=== PATIENT | male | born 1955 | race Caucasian/White ===

== ENCOUNTER 2020-10-13 11:29 | Outpatient (CLI) | payer OTHER ==
[2020-10-13 12:13] VITALS: BP 139/89
--- NOTE | 2020-10-13 12:13 | SLEEP CARE CONSULTATION ---
Information from patient questionnaire entered by Sharifa Luque. I have reviewed and concur with the information entered by Sharifa Luque. This document represents the service I personally performed and the decisions made by me, Vanesa Alcala ARNP. History of Present Illness Service Date and Time: 10/13/2020 1129 Reason for Visit: New patient Chief Complaint: reports: Insomnia, Unrefreshed sleep, Snoring, Frequent awakenings at night Date of Onset: long time, but surge about 2 weeks ago Usual bedtime: 10 pm Time it takes to fall asleep: up to 30 minutes Snores at night: Yes Observed to quit breathing while asleep: Yes Sleeps alone due to snoring: Yes Number of times waking at night: 5 Reasons for waking at night: reports: Gasping for air Toss, Turn, or Twitch while sleeping: Yes Recalls having dreams: No Usually gets out of bed at: 6 am Feels refreshed in the morning: Yes (sometimes) Morning headache: No Sleepy or fatigued during the day: Yes Ever fallen asleep while driving: No Takes day naps: Yes Dreams during day naps: No Prior sleep studies: No Additional HPI information: I had the pleasure of seeing SUSANA SIMENTAL today regarding the possibility of him having a sleep disorder. His current complaints are frequent night awakenings, insomnia and snoring. He hurt his back and he had difficulty sleeping on his sides recently. He states that for a few nights after he experienced some shortness of breath/gasping for air on his side. He was not sure if it was related to anxiety but he decided to see his PCP. His PCP did evaluate him for heart causes and then he was referred here for evaluation of possible sleep apnea. He has trouble with waking up after going to sleep and if he does not go to sleep by midnight he has difficulty going to sleep. His sleeps in other room due to loud and frequent snoring. She has not seen if he has pauses in breathing. He occasionally has woke up gasping for air. He states sometimes it is just in his head and he feels anxious about getting a breath in. He did try an OTC oral device that did seem to help him feel better in the morning but it made his jaw sore and he stopped using it. He has a brother who has sleep apnea and tried using a machine but did not tolerate it well, he stopped using it. 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 Patient is and lives in [place]. Have you smoked in the past 12 months: No Alcohol use: No Caffeine use: Yes Caffeine amount and frequency: 12 oz drink once a week Family History Family history of sleep disordered breathing: Yes Family Hx Sleep Apnea: Father: Snoring, Sibling: Snoring, Sleep apnea - Untreated Allergies and Home Medications Drug allergies reviewed: Yes (NKDA) Home medication list reviewed: Yes Allergy and home medication list: Flonase, prn Review of Systems Weight gain over past 5 years: 5 Weight loss over past 5 years: 5 Cardiovascular: denies: high blood pressure Respiratory: reports: shortness of breath Gastrointestinal: reports: heartburn Neurological: denies: headaches Psychiatric: denies: anxiety, depression Ear/Nose/Throat: reports: wisdom teeth removed. denies: tonsillectomy Physical Exam Blood Pressure: 139/89 Cuff size: wrist Heart Rate: 74 O2 Saturation: 96 Height: 6 ft Weight: 190 lb Body Mass Index: 25.7 BMI Classification: Overweight Neck circumference: 15 (inches) Nostrils: patent to airflow Mouth and throat: narrow oropharynx Soft palate: long Hard palate: normal Uvula: normal Uvula visualization: 100% Mallampati Class I Tongue: enlarged in size with teeth rudd on lateral edges Tonsils: small Chin and jaw: normal size and position Neck: normal w/o lymphadenopathy or thyromegaly Heart: regular rate and rhythm Lungs: clear bilaterally Impression and Plan 1. Suspected Obstructive Sleep Apnea-Hypopnea Syndrome, as suggested by a history of loud and irregular snoring, gasping or choking in sleep, frequent awakening during the night, and unrefreshed sleep. Narrow oropharynx and obesity are common predisposing factors for obstructive sleep apnea-hypopnea syndrome. I recommend proceeding to polysomnography to confirm the diagnosis and to assess severity. If the patient has significant sleep disordered breathing, a manual CPAP titration study will also be performed to find the optimal treatment pressure. I informed the patient of what the sleep studies involve and after some discussion, obtained agreement to proceed. The pathophysiology of obstructive sleep apnea-hypopnea syndrome was discussed with the patient and health risks of cardiovascular and cerebrovascular disease if not treated. Risks of drowsy driving discussed in detail and patient advised to avoid long distance driving and to harness puller at the first sign of drowsiness. Patient agreed to plan. * Schedule polysomnography +- manual CPAP titration study and return in 1-2 weeks after the study to discuss result and initiate therapy. * Avoid long distance driving or driving when feeling sleepy. * Avoid alcohol, sedative and muscle relaxant around bedtime. * Attempt to lose weight. * Review instructions provided by trained office staff on how to prepare for the sleep study. * Return for follow-up after sleep study completed. Counseling Topics: Weight loss health impact Visit Type: In Office Time Spent with Patient (minutes): 30 Provider Statement: I spent 100% of the Face to Face Visit with the patient with greater than 50% spent counseling the patient and coordination of care.
== END 2020-10-13 11:30 | disposition home or self-care (01) ==
LOC: SC 11:29
PROVIDERS: ATTEND Nurse Practitioner Family
DX: G47.8 Other sleep disorders (principal); R06.83 Snoring; E66.3 Overweight; Z68.25 Body mass index [BMI] 25.0-25.9, adult
CPT/HCPCS: 99203; 99212

== ENCOUNTER 2020-10-15 14:21 | Outpatient (CLI) | payer OTHER | END 2020-10-15 14:22 | disposition home or self-care (01) | LOC: SC 14:21 | PROVIDERS: ATTEND Nurse Practitioner Family | DX: G47.33 Obstructive sleep apnea (adult) (pediatric) (principal); R09.02 Hypoxemia; E66.3 Overweight; Z68.25 Body mass index [BMI] 25.0-25.9, adult | CPT/HCPCS: 95806 ==

== ENCOUNTER 2020-10-20 11:44 | Outpatient (CLI) | payer OTHER ==
--- NOTE | 2020-10-20 12:30 | SLEEP CARE CONSULTATION ---
Information from patient questionnaire entered by Sharifa Luque. I have reviewed and concur with the information entered by Sharifa Luque. This document represents the service I personally performed and the decisions made by , Vanesa Alcala ARNP. History of Present Illness Service Date and Time: 10/20/2020 1144 Initial [place] Sleepiness Scale score: 11 (2020) Current [place] Sleepiness Scale score: 12 Additional HPI information: SUSANA SIMENTAL returns for follow up and results of the recently performed home sleep study. I explained the pathophysiology behind obstructive sleep apnea. We then spent quite a bit of time discussing different treatment options. For mild obstructive sleep apnea, surgery and oral appliance are alternatives to nasal CPAP therapy but in moderate or severe cases, nasal CPAP is the most effective and reliable treatment. Because apnea is primarily in supine position, then positional management therapy could be effective. Methods discussed such as positioning with pillows, using a T-shirt with tennis balls in the back, and shown commercial products that have a pillow format on back to prevent supine sleep. I reviewed the impact of weight changes on sleep apnea and strongly recommended losing weight. After some discussion, the patient opted to go with the nasal CPAP therapy. Nasal autoCPAP set at 4-15 cmH20 will be ordered with rationale explained. A manual titration study will be ordered if unable to find optimal pressure with office adjustments. I explained how CPAP machine works with sample devices RespirRedbeacons Dreamstation and Traansmission [id number] and what to expect when using the machine. Using CPAP every night in order to get used to it was emphasized. Patient advised to put CPAP mask on before getting into bed so as not to fall asleep without CPAP. To assist acclimation to CPAP use, it could also be used for a short time during day while reading or watching TV. The patient was instructed to call the CPAP supplier to discuss any mechanical problem that may occur. If the mask given is uncomfortable or is difficult to keep on through the night even with adjustment, contact the CPAP supplier as many will replace with another mask style if notified before 30 days. If snoring or perceives is not getting enough air or too much air from the machine, notify this office. AAS patient education PAP tips reviewed and given to patient. Patient was cautioned about risks of drowsy driving until sleepiness symptoms resolve. Sleep Study - Results Type of Sleep Study: Home sleep study Prior sleep studies: No Polysomnography/Home Sleep Study results: Physician Impression: The quality of the study is good. The length of the study is adequate (> 240 minutes). Please also see the tabulated and graphic data. 1. Obstructive Sleep Apnea-Hypopnea (ICD-10 G47.33), severe, with an AHI of 46.0 /hr and manjinder SaO2 of 81%. During the study, the patient had 371 apneas (371 obstructive, 0 central, 0 mixed) and 50 hypopneas. The longest episode lasted 102.5 seconds. The respiratory events occurred more frequently during supine sleep (supine AHI was 72.3 and non-supine, 37.82). 2. Hypoxemia (ICD-10 R09.02), mild, with the lowest oxygen saturation of 81 % and 74.1 minutes with SaO2 under 90%. Baseline oxygen saturation was normal (Average oxygen saturation was 92%). Allergies and Home Medications Home medication list reviewed: Yes (no new meds) Review of Systems Review of systems same as previous: Yes (no changes) Physical Exam Heart Rate: 62 O2 Saturation: 95 Height: 6 ft Weight: 192 lb Body Mass Index: 26.0 BMI Classification: Overweight Impression and Plan 1. Obstructive Sleep Apnea-Hypopnea Syndrome, severe, with lowest oxygen saturation of 81%. Obviously this is the cause of the patients symptoms of unrefreshed sleep, and excessive daytime sleepiness. Positive pressure therapy could benefit his overall health and reduce risks for cardiovascular or cerebrovascular adverse events. As mentioned above, the patient will be started on nasal autoCPAP therapy with pressure set at 4-15 cmH2O. A manual titration study will be completed if unable to find optimal treatment pressure with office adjustments. Compliance guidelines also reviewed. A copy of compliance guidelines will be given for reference at check out. Because the apnea is more severe supine, I instructed to avoid sleeping supine using pillow positioning until able to start CPAP use. 2. Hypoxemia, mild, with the lowest oxygen saturation of 81 % and 74.1 minutes with SaO2 under 90%. His baseline oxygen saturation was normal with an average oxygen saturation at 92%. * Nasal auto CPAP therapy, pressure at 4-15 cm H2O. * Attempt to lose weight. * Avoid alcohol consumption near bedtime. * Avoid supine sleep until using CPAP. * The patient is again cautioned about driving until sleepiness completely resolves. * Return one month after CPAP obtained. I will assess response to therapy and compliance at that time. Counseling Topics: Weight loss health impact Visit Type: In Office Time Spent with Patient (minutes): 22 Provider Statement: I spent 100% of the Face to Face Visit with the patient with greater than 50% spent counseling the patient and coordination of care.
== END 2020-10-20 11:45 | disposition home or self-care (01) ==
LOC: SC 11:44
PROVIDERS: ATTEND Nurse Practitioner Family
DX: G47.33 Obstructive sleep apnea (adult) (pediatric) (principal); R09.02 Hypoxemia; E66.3 Overweight; Z68.26 Body mass index [BMI] 26.0-26.9, adult
CPT/HCPCS: 99212; 99213

== ENCOUNTER 2020-12-14 11:28 | Outpatient (CLI) | payer OTHER ==
--- NOTE | 2020-12-14 12:02 | SLEEP CARE CONSULTATION ---
Information from patient questionnaire entered by Sharifa Luque. I have reviewed and concur with the information entered by Sharifa Luque. This document represents the service I personally performed and the decisions made by , Vanesa Alcala ARNP. History of Present Illness Service Date and Time: 12/14/2020 1128 Previous diagnosis: Severe, Obstructive Sleep Apnea-Hypopnea Syndrome AHI: 46.0 (in 2020) Reason for follow up: first compliance Equipment type: CPAP Equipment obtained from: [employer] (has gotten more supplies) Mask style: Nasal Backup mask available: Yes (other mask) Last cushion change: 1 month Prior sleep studies: Yes Year and Where: 2020 - Merged with [facility] Type of Sleep Study: Home sleep study HPI additional information: SUSANA SIMENTAL was diagnosed to have severe, AHI 46.0, obstructive sleep apnea- hypopnea syndrome and returned today for CPAP therapy first compliance follow- up. CPAP Compliance Data - Data Reviewed with Patient Average duration of nightly device use: 5 hr 20 min Compliance rate %: 100 Current pressure setting (cmH2O): 4-6 (avg 5.4, max 6.0) Humidity settin Average residual AHI: 14.2 Central apnea: 12.1 Obstructive apnea: 0.5 Subjective Patient concerns: denies: aerophagia, mask discomfort, air blowing in eyes, mask leak noise, condensation in mask/hose, nasal congestion, dry mouth, nose, thro at, epistaxis, other Observed to snore while using device: No Current pressure setting perceived as: comfortable On therapy, patient: reports: sleeping better, awakening more refreshed, being more awake and alert during the day, more rested overall. denies: drowsiness while driving Initial [place] Sleepiness Scale score: 11 (2020) Current [place] Sleepiness Scale score: 17 Allergies and Home Medications Home medication list reviewed: Yes (no changes) Review of Systems Review of systems same as previous: Yes (no changes) Physical Exam Heart Rate: 65 O2 Saturation: 94 Height: 6 ft Weight: 181 lb 9.6 oz Body Mass Index: 24.6 BMI Classification: Healthy weight Impression and Plan 1. Obstructive Sleep Apnea-Hypopnea Syndrome, severe, with excellent treatment compliance and fair apnea control. On CPAP therapy, the patient has better sleep quality and is more rested overall. The patients pressure will be changed to autoCPAP 4-7 cmH20 for elevation of residual AHI. Patient advised to contact me if pressure change is uncomfortable so that it can be adjusted. Goals for apnea control discussed. He is already scheduled for a titration study. He continues to have central apneas at 12.1 on average and obstructive apneas at 0.5 on average. I will just increase his pressure to 4 to 7 cmH2O and then we will readjust after his titration study is completed. Patient voiced understanding. Patient's apnea severity and rationale for treatment to reduce apnea, improve sleep quality and reduce cardiovascular and cerebrovascular events was reviewed. * Change autoCPAP pressure to 4-7 cmH2O * Titration study as previously ordered * Notify me if snoring with mask or feeling that the pressure is too much or too little * Maintain a healthy weight * Call this office if any problems using CPAP * Return for follow up after titration study, or sooner if concerns arise Counseling Topics: Spare mask, Weight control Visit Type: In Office Time Spent with Patient (minutes): 22 Provider Statement: I spent 100% of the Face to Face Visit with the patient with greater than 50% spent counseling the patient and coordination of care.
== END 2020-12-14 11:29 | disposition home or self-care (01) ==
LOC: SC 11:28
PROVIDERS: ATTEND Nurse Practitioner Family
DX: G47.33 Obstructive sleep apnea (adult) (pediatric) (principal)
CPT/HCPCS: 99212; 99213

== ENCOUNTER 2023-04-25 20:49 | Outpatient (CLI) | payer OTHER ==
--- NOTE | 2023-04-26 12:57 | Ultrasound Report ---
PROCEDURE: Retroperitoneal INDICATIONS: UROTHELIAL CA OF BLADDER TECHNIQUE: Real-time scanning was performed of the retroperitoneal organs, with image documentation. COMPARISON: None. FINDINGS: Kidneys: Kidneys are normal in size. Right kidney measures 12.8 cm long; left kidney measures 10.9 cm long. Right renal cortical thickness is 1.2 cm; left renal cortical thickness is 1.3 cm. No ted d masses or nephrolithiasis. Mild right-sided hydronephrosis. No left-sided hydronephrosis. Bladder: Pre-void bladder volume is 298 mL. Post-void residual is 22 mL. Pre-void images demonstra te no intraluminal masses or stones. Sprague catheter is in appropriate position. On pre-void images, l eft ureteral jet is noted with color Doppler interrogation. (Of note, ureteral jets may not be detec table in up to 25% of cases due to insufficient differences in specific gravity between ureteral and bladder urine). Miscellaneous: No free abdominal fluid. Prostate measures 3.1 x 3.8 x 3.7 cm (volume of 24 mL) IMPRESSION: 1. Mild right-sided hydronephrosis. No left-sided hydronephrosis. 2. No sonographic evidence of bladder mass or stone. 3. Sprague is in appropriate position. Reviewed by: Esperanza Jasso MD on 04/26/2023 12:56 PM PST Approved by: Esperanza Jasso MD on 04/26/2023 12:56 PM PST Station ID: [id number]
== END 2023-04-25 20:50 | disposition home or self-care (01) ==
LOC: DI 20:49
PROVIDERS: ATTEND Urology
DX: C67.9 Malignant neoplasm of bladder, unspecified (principal); N13.30 Unspecified hydronephrosis; Z96.0 Presence of urogenital implants

== ENCOUNTER 2023-05-05 08:52 | Emergency (ER) | payer OTHER ==
--- NOTE | 2023-05-05 09:35 | ED Physician Documentation ---
PD HPI MALE - Stated complaint Stated Complaint: CATH HELP - Chief complaint Chief Complaint: General - History obtained from History obtained from: Patient - History of Present Illness Timing - onset: How many days ago (4) Timing - duration: Days (4) Timing - details: Intermittant (he had had bladder cancer removed and mason in place short time then out, and was having retention, so taught intermittent self-caths. he did okay for couple of days, but then with feeling of resistance going in and had some blood from urethra briefly once. Unable to pass catheter today. wants help.) Associated symptoms: Unable to urinate, Mason problem (difficultly passing self cath catheter and today unable to get it at all.) Review of Systems Constitutional: denies: Fever, Chills GI: denies: Abdominal Pain, Vomiting Skin: denies: Rash, Lesions PD PAST MEDICAL HISTORY - Past Medical History Past Medical History: Yes Cardiovascular: Hypertension Respiratory: None Neuro: None Endocrine/Autoimmune: None GI: None : Other HEENT: None Psych: None Musculoskeletal: None Derm: None Other Past Medical History: bladder cancer - Past Surgical History Past Surgical History: Yes - Allergies Allergies/Adverse Reactions: Allergies Allergy/AdvReac Type Severity Reaction Status Date / Time No Known Drug Allergies Allergy Verified 05/05/23 09:17 - Social History Does the pt smoke?: No Smoking Status: Never smoker Does the pt drink ETOH?: No Does the pt have substance abuse?: No - Immunizations Immunizations are current?: Yes - POLST Patient has POLST: No PD ED PE NORMAL - Vitals Vital signs reviewed: Yes - General General: Alert and oriented X 3, No acute distress, Well developed/nourished - Abdomen Abdomen: Normal bowel sounds, Soft, No organomegaly, Other (minimally tender suprapubic and some distended bladder area. Last self cath was about 6-8 hurs ago.) Results - Vitals Vitals: Vital Signs - 24 hr 05/05/23 05/05/23 09:12 11:12 Temperature 35.9 C L 35.9 C L Heart Rate 65 72 Respiratory 16 16 Rate Blood Pressure 176/111 H 136/72 H O2 Saturation 95 100 PD Medical Decision Making - ED course Complexity details: considered differential (He has been doing intermittent self caths since this past Sunday. He states he had some difficulty with it intermittently and had some blood in the urine after a difficult insertion on Sunday which was 3 days ago. He was having inability to pass the catheter this morning.), d/w patient ED course: At this point given his history of enlarged prostate and with difficulty on the intermittent caths, shared decision with the patient was to just place an indwelling Mason to a leg bag until he can follow-up with his urologist this coming week. The patient was in agreement with that. Departure - Departure Disposition: 01 Home, Self Care Clinical Impression: BPH (benign prostatic hyperplasia), Acute on chronic urinary retention Condition: Stable Record reviewed to determine appropriate education?: Yes Follow-Up: Chandrika Braga MD [Primary Care Provider] - Comments: Since you are having difficulty with the self catheterizations, at this point it is reasonable to just have the catheter in place over the next few days until you can follow-up with your urologist this coming week. Forms: PCP List Discharge Date/Time: 05/05/23 11:12
[2023-05-05 11:20] VITALS: BP 136/72; O2SAT 100
== END 2023-05-05 11:12 | disposition home or self-care (01) ==
LOC: ED 08:52
DX: N40.1 Benign prostatic hyperplasia with lower urinary tract symptoms (principal); R33.8 Other retention of urine; I10 Essential (primary) hypertension; Z85.51 Personal history of malignant neoplasm of bladder
CPT/HCPCS: 51702; 99283

== ENCOUNTER 2023-05-22 19:52 | Outpatient (CLI) | payer OTHER ==
--- NOTE | 2023-05-23 16:24 | Ultrasound Report ---
PROCEDURE: Retroperitoneal INDICATIONS: UROTHELIAL CA TECHNIQUE: Real-time scanning was performed of the retroperitoneal organs, with image documentation. COMPARISON: Retroperitoneal ultrasound 04/26/2023 FINDINGS: Kidneys: Right kidney measures 11.5 cm long; left kidney measures 12.0 cm long. Right renal cortica l thickness is 1.0 cm; left renal cortical thickness is 1.5 cm. There is persistent appearance of rig ht hydronephrosis although slightly decreased compared to prior exam. Pelvocaliectasis on the left is present relatively unchanged. Bladder: Pre-void bladder volume is 871 mL. Post-void residual is 12 mL. Pre-void images demonstra te no intraluminal masses or stones. On pre-void images, neither ureteral jets are noted with color Doppler interrogation. (Of note, ureteral jets may not be detectable in up to 25% of cases due to in sufficient differences in specific gravity between ureteral and bladder urine). Miscellaneous: No free abdominal fluid. IMPRESSION: Persistent appearance of hydronephrosis/pelvocaliectasis, similar versus minimally less prominent. Reviewed by: Tory Mays MD on 05/23/2023 4:23 PM PST Approved by: Tory Mays MD on 05/23/2023 4:23 PM PST Station ID: [id number]
== END 2023-05-22 19:53 | disposition home or self-care (01) ==
LOC: DI 19:52
PROVIDERS: ATTEND Physician Assistant Medical
DX: C67.9 Malignant neoplasm of bladder, unspecified (principal); N13.30 Unspecified hydronephrosis

== ENCOUNTER 2023-08-04 02:21 | Inpatient (IN) | payer MEDICARE, OTHER ==
--- NOTE | 2023-08-04 03:24 | ED Physician Documentation ---
History of Present Illness - Stated complaint Stated Complaint: SOA/PANIC ATTACK - Chief complaint Chief Complaint: General - History obtained from History obtained from: Patient - Additonal information Additional information: 68yM with pmh urothelial cancer s/p BCG local chemotheray treatment and TURP, recent imaging 3 weeks ago showing lung and liver nodules, p/w insomnia for the past couple weeks along with shortness of breath, increased nonproductive cough and anxiety. patient states he had ground glass opacities on his CT chest 3 weeks ago and O2 sat has been 92-93% in office with Dr. Braga this week. denies fever, rhinorrhea, nasal congestion, sore throat, chest pain, nausea. The main reason he came is insomnia. PD PAST MEDICAL HISTORY - Past Medical History Past Medical History: Yes Cardiovascular: Hypertension Respiratory: None Neuro: None Endocrine/Autoimmune: None GI: None : Other HEENT: None Psych: Panic attacks Musculoskeletal: None Derm: None Other Past Medical History: Bladder ca - Past Surgical History Past Surgical History: Yes Ortho: ACL reconstruction - Present Medications Home Medications: Ambulatory Orders Medication Instructions Recorded Confirmed LORazepam [Ativan] 0.5 mg PO HS PRN 10 Days #10 tablet 08/04/23 Tamsulosin [Flomax] 0.4 mg PO DAILY 08/04/23 08/04/23 - Allergies Allergies/Adverse Reactions: Allergies Allergy/AdvReac Type Severity Reaction Status Date / Time No Known Drug Allergies Allergy Verified 08/04/23 03:02 - Social History Does the pt smoke?: No Smoking Status: Never smoker Does the pt drink ETOH?: No Does the pt have substance abuse?: No - Immunizations Immunizations are current?: Yes - POLST Patient has POLST: No PD ED PE NORMAL - Vitals Vital signs reviewed: Yes - General General: Alert and oriented X 3, No acute distress, Well developed/nourished - HEENT HEENT: Atraumatic, PERRL, EOMI, Moist mucous membranes, Pharynx benign - Neck Neck: Supple, no meningeal sign - Cardiac Cardiac: RRR - Respiratory Respiratory: Other (coarse bilateral breath sounds) - Abdomen Abdomen: Non tender, Non distended - Derm Derm: Normal color, Warm and dry Results - Vitals Vitals: Vital Signs - 24 hr 08/04/23 08/04/23 08/04/23 02:40 02:44 04:04 Temperature 36.6 C Heart Rate 95 69 70 Respiratory 19 20 26 H Rate Blood Pressure 168/101 H 139/97 H 124/86 H O2 Saturation 98 88 L 85 L If not protocol 2 : Oxygen Flow, liters/minute Oxygen O2 Source Nasal cannula - EKG (time done) 0246 EKG releavant findings:: EKG personally interpreted by author of this note. Relevant findings are: Rate: Rate (enter#) (69) Rhythm: NSR [place]: Normal Intervals: Normal MT QRS: Normal Ischemia: Normal ST segments - Labs Labs: Laboratory Tests 08/04/23 08/04/23 08/04/23 03:32 03:32 03:32 WBC 8.4 RBC 4.33 L Hgb 13.7 L Hct 40.1 L MCV 92.6 MCH 31.6 H MCHC 34.2 RDW 12.0 Plt Count 261 MPV 8.6 Neut # (Auto) 6.5 Lymph # (Auto) 0.5 L [place] # (Auto) 1.0 Eos # (Auto) 0.2 Baso # (Auto) 0.1 Absolute Nucleated RBC 0.00 Nucleated RBC % 0.0 D-Dimer 462.4 H VBG pH VBG pCO2 VBG pO2 VBG HCO3 VBG Total CO2 VBG O2 Saturation VBG Base Excess Sodium 136 Potassium 3.8 Chloride 103 Carbon Dioxide 25 Anion Gap 8.0 BUN 12 Creatinine 0.8 Estimated GFR (MDRD) 97 Glucose 117 H Calcium 8.7 Total Bilirubin 0.7 AST 11 ALT 9 L Alkaline Phosphatase 50 B-Natriuretic Peptide Total Protein 7.4 Albumin 3.5 Globulin 3.9 Albumin/Globulin Ratio 0.9 L Lipase 13 08/04/23 08/04/23 03:32 03:32 WBC RBC Hgb Hct MCV MCH MCHC RDW Plt Count MPV Neut # (Auto) Lymph # (Auto) [place] # (Auto) Eos # (Auto) Baso # (Auto) Absolute Nucleated RBC Nucleated RBC % D-Dimer VBG pH 7.469 H VBG pCO2 34.5 L VBG pO2 55.7 H VBG HCO3 24.5 VBG Total CO2 25.5 VBG O2 Saturation 90.0 H VBG Base Excess 1.3 Sodium Potassium Chloride Carbon Dioxide Anion Gap BUN Creatinine Estimated GFR (MDRD) Glucose Calcium Total Bilirubin AST ALT Alkaline Phosphatase B-Natriuretic Peptide 17 Total Protein Albumin Globulin Albumin/Globulin Ratio Lipase PD Medical Decision Making - ED course ED course: 68yM with metastatic bladder cancer p/w insomnia and anxiety for the past couple weeks as well as increased cough and soa. patient states symptoms began after finding out results of his chest CT 3 weeks ago that showed new pulmonary nodules and ground glass opacities in the lungs. Patient refused CXR or ct chest. CBC, abdominal panel, RVP, d-dimer, BNP, vbg ordered. Labs remarkable for d- dimer 462. VBG shows hyperventilatory pattern. cbc, abdominal panel, bnp otherwise normal. Pending RVP. Patient refused CTA chest to r/o PE despite knowing risk of morbidity / mortality. They would like to leave AMA at this time. risks discussed and patient is of sound mind and able to consent to or refuse treatment. advised to return immediately if they change their minds. plan to f/u with oncology. Departure - Departure Disposition: 07 Against Medical Advice Clinical Impression: Shortness of breath, Anxiety, Cough, Hypoxia, Insomnia Condition: Stable Instructions: ED Dyspnea Shortness of Breath Prescriptions: LORazepam [Ativan] 0.5 mg PO HS PRN 10 Days #10 tablet PRN Reason: Insomnia Comments: You were seen in the emergency department for shortness of breath, cough and low oxygen levels. Your labwork is concerning for possible blood clot in the lung (pulmonary embolism). You refused a chest xray or ct scan of the chest which limits our medical evaluation. An AMA form was completed to document your leaving against medical advice. A prescription for ativan, an anti-anxiety medication was sent electronically to [facility] pharmacy. Please follow-up with your primary care provider and oncology and return to the emergency department if you have any new or worsening symptoms or other concerns. Forms: PCP List
[2023-08-04] MEDS: LORazepam 2 MG/ML VIAL IVP STA (03:32)
[2023-08-04 03:41] LABS: BASOPHILS # (AUTO) 0.1 10^3/uL (0.0-0.1); BASOPHILS % (AUTO) 0.7 %; EOSINOPHILS # (AUTO) 0.2 10^3/uL (0.0-0.7); EOSINOPHILS % (AUTO) 2.6 %; HCT - HEMATOCRIT 40.1 % (42.0-52.0); HGB - HEMOGLOBIN 13.7 g/dL (14.0-18.0); LYMPHOCYTES # (AUTO) 0.5 10^3/uL (1.5-3.5); LYMPHOCYTES % (AUTO) 6.3 %; MEAN CORPUSCULAR HEMOGLOBIN 31.6 pg (27.0-31.0); MEAN CORPUSCULAR HGB CONC 34.2 g/dL (32.0-36.0); MEAN CORPUSCULAR VOLUME 92.6 fL (80.0-94.0); MEAN PLATELET VOLUME 8.6 fL (7.4-11.4); MONOCYTES % (AUTO) 12.4 %; NEUTROPHILS # (AUTO) 6.5 10^3/uL (1.5-6.6); NEUTROPHILS % (AUTO) 77.6 %; PLT - PLATELET COUNT 261 10^3/uL (130-450); RED BLOOD COUNT 4.33 10^6/uL (4.70-6.10); WHITE BLOOD COUNT 8.4 x10^3/uL (4.8-10.8)
[2023-08-04 03:53] LABS: VBG HCO3 24.5 mmol/L (23-28); VBG PCO2 34.5 mmHg (41-51); VBG PH 7.469 (7.31-7.41); VBG PO2 55.7 mmHg (25-47); VBG TOTAL CO2 25.5 mmol/L (24-29)
[2023-08-04 03:54] LABS: VBG BASE EXCESS 1.3 mmol/L (-2 - +2)
[2023-08-04 04:04] LABS: ALBUMIN 3.5 g/dL (3.2-5.5); ALBUMIN/GLOBULIN RATIO 0.9 (1.0-2.2); BILIRUBIN,TOTAL 0.7 mg/dL (0.2-1.0); CALCIUM 8.7 mg/dL (8.5-10.3); CREATININE 0.8 mg/dL (0.6-1.3); POTASSIUM 3.8 mmol/L (3.5-4.5); TOTAL PROTEIN 7.4 g/dL (6.4-8.9)
[2023-08-04] MEDS ORDERED: iohexoL-300 100 ML VIAL ONE (05:18)
[2023-08-04 05:20] LABS: B. PARAPERTUSSIS- RESP PCR PAN NOT DETECTED; B. PERTUSSIS- RESP PCR PANEL NOT DETECTED; C. PNEUMONIAE- RESP PCR PANEL NOT DETECTED; CORONAVIRUS 229E-RESP PCR NOT DETECTED; CORONAVIRUS HKU1-RESP PCR NOT DETECTED; CORONAVIRUS NL63-RESP PCR NOT DETECTED; CORONAVIRUS OC43-RESP PCR NOT DETECTED; HUMAN METAPNEUMOVIRUS NOT DETECTED; INFLUENZA A- RESP PCR PANEL NOT DETECTED; INFLUENZA B - RESP PCR PANEL NOT DETECTED; M. PNEUMONIAE- RESP PCR PANEL NOT DETECTED; PARAINFLUENZA VIRUS 1 NOT DETECTED; PARAINFLUENZA VIRUS 2 NOT DETECTED; PARAINFLUENZA VIRUS 3 NOT DETECTED; PARAINFLUENZA VIRUS 4 NOT DETECTED; RHINOVIRUS/ENTEROVIRUS NOT DETECTED; RSV- RESP PCR PANEL NOT DETECTED; SARS-CoV-2 -RESP PCR PANEL NOT DETECTED
[2023-08-04] MEDS: iohexoL-300 100 ML VIAL IVP ONE (06:03)
--- NOTE | 2023-08-04 07:05 | ED Physician Documentation ---
ED Addendum - Addendum Addendum: 08/04/23 07:02 CT chest showed BL lung disease "likely pneumonic in origin". Plan to admit for CAP in the setting of hypoxia. patient satting low 90s on 4L nasal cannula. desaturates to mid80s off of oxygen. rocephin/azithromycin ordered along with lactic acid and blood cultures. no beds available overnight therefore endorsed to incoming daytime ED MD at 7am shift change.
[2023-08-04] MEDS: cefTRIAXone 1 GM in SODIUM CHLORIDE 0.9% MINIBAG 100 ML IV STA (07:23)
[2023-08-04] MEDS: AZITHROMYCIN INJ 500 MG in SODIUM CHLORIDE 0.9% 250 ML IV STA (08:08)
--- NOTE | 2023-08-04 11:07 | CT Report ---
PROCEDURE: Angio Chest INDICATIONS: soa, cough CONTRAST: 100 ML OMNI 300 TECHNIQUE: After the administration of intravenous contrast, 2 mm axial images were acquired from the pulmonary apices to the posterior costophrenic angles during the arterial phase. In addition, 1 mm lung kernel and 5 mm soft tissue kernel reconstructions were performed. 3-dimensional coronal oblique maximum int ensity projection (MIP) reformats, 8 mm axial MIP, and 5 mm coronal and sagittal MPR reformats were t hen performed through the thorax. For radiation dose reduction, the following was used: automated exp osure control, adjustment of mA and/or kV according to patient size. COMPARISON: None. FINDINGS: Image quality: Excellent. Large vessels: No filling defects within the opacified pulmonary arteries, accounting for motion and contrast timing. No evidence of acute aortic syndrome or aortic aneurysm. Lungs and pleura: As a small right-sided pleural effusion and a trace left-sided pleural effusion. Ov erlying dependent enhancing consolidation can be seen, which is attributed to atelectasis. Minimal pa tchy poorly defined nodular opacities can be seen elsewhere within the lungs. No pneumothorax is seen . Mediastinum: Heart size is normal. No pericardial effusion. No large vessel abnormality. No mediastin al adenopathy by size criteria. Chest wall and lower neck: Thyroid is unremarkable. No axillary or supraclavicular adenopathy by size . Bones: No aggressive osseous abnormality. Age-appropriate degenerative changes are seen. There is accentuated thoracic kyphosis. Upper Abdomen: Unremarkable. IMPRESSION: No pulmonary embolus. There is a small right-sided pleural effusion and a trace left-sided pleural effusion, with associate d overlying atelectasis. Minimal scattered foci of poorly defined opacity can be seen throughout the lungs, which are nonspeci fic, yet atypical infection is suspected. Differential diagnosis includes mild pulmonary edema. Note: No significant discrepancy from the preliminary report. Reviewed by: Goldy Snyder MD on 08/04/2023 10:06 AM [facility] Approved by: Goldy Snyder MD on 08/04/2023 10:06 AM [facility] Station ID: [id number]
[2023-08-04] MEDS ORDERED: ONDANSETRON ODT 4 MG TABLET TL PRN (11:14)
[2023-08-04] MEDS: SODIUM CHLORIDE 0.9% 1,000 ML IV SCH (11:33)
[2023-08-04] MEDS ORDERED: ZOLPIDEM 5 MG TABLET PO PRN (13:42)
--- NOTE | 2023-08-04 13:44 | HISTORY & PHYSICAL EXAMINATION ---
Chief Complaint - Chief Complaint Chief Complaint: Anxiety and shortness of breath <Elizabeth Powell - Last Filed: 08/04/23 17:41> History of Present Illness - Admitted From Admitted From:: Emergency Room - History Obtained From History obtained from: Patient and patient's Exam Limitations: none <Elizabeth Powell - Last Filed: 08/04/23 17:41> - History of Present Illness HPI Comment/Other: Yao is a 68 year old male with a history of urothelial cancer s/p BCG local chemotheray treatment and TURP who presents to the ER with anxiety and shortness of breath. He reports he has been feeling progressively weaker and short of breath for the past few weeks. He has dyspnea with exertion and reports significant fatigue when exercising, which is new for him. He also endorses a nonproductive cough. Initial labs in the ER were unremarkable other than an elevated D-dimer at 462.4. CT angio of the chest showed no PE. Small right sided pleural effusion and trace left sided pleural effusion with associated overlying atelectasis. Minimal scattered foci of poorly defined opacity can be seen throughout the lungs. This appears to be nonspecfic, yet atypical infection is suspected. Differential diagnosis includes mild pulmonary edema. EKG was unremarkable. He did have a CT of the chest at the end of Jun that showed ground glass opacities with an O2 sat around 92-93%. Currently, patient appears to be anxious and is worried about his sleep. He has diagnosed obstructive sleep apnea and does sleep with a CPAP with some relief. However, since he started feeling sick a few weeks ago, he has had a hard time sleeping due to fear of going to sleep and never waking up. He admits to being incredibly stressed and is interested in anti-anxiety meds. Due to increased stress, he also reports a decreased appetite but denies any nausea, vomiting, abdominal pain, changes in bowel movements, or weight loss. (Elizabeth Powell) History - Past Medical History Cardiovascular: reports: Hypertension Respiratory: reports: None Neuro: reports: None Endocrine/Autoimmune: reports: None GI: reports: None : reports: Other (mason cather) HEENT: reports: None Psych: reports: Anxiety, Panic attacks Musculoskeletal: reports: None Derm: reports: None MRSA Hx?: No Other Past Medical History: Bladder ca - Past Surgical History Ortho: reports: ACL reconstruction - Family & Social History Family History: Mother: Alive and Well, Father: , Diabetes, Type 2, [place], Sister: Diabetes, Type 2, Brother: Diabetes, Type 2 Living arrangement: At home Living Situation: With spouse/s.o. - Substance History Use: Uses substance without health or social issues: NONE Abuse: Recurrent use of substance despite neg consequences: NONE Dependence: Experiences withdrawal or developed tolerances: NONE - POLST Patient has POLST: No POLST Status: Full Code <Elizabeth Powell - Last Filed: 08/04/23 17:41> Meds/Allgy <Elizabeth Powell - Last Filed: 08/04/23 17:41> <Magalie Hernandez - Last Filed: 08/05/23 12:18> - Home Medications Home Medications: Ambulatory Orders Medication Instructions Recorded Confirmed LORazepam [Ativan] 0.5 mg PO HS PRN 10 Days #10 tablet 08/04/23 Tamsulosin [Flomax] 0.4 mg PO DAILY 08/04/23 08/04/23 - Allergies Allergies/Adverse Reactions: Allergies Allergy/AdvReac Type Severity Reaction Status Date / Time No Known Drug Allergies Allergy Verified 08/04/23 03:02 Review of Systems - Constitutional Constitutional: reports: Fatigue, Poor appetite. denies: Weight loss - Eyes Eyes: denies: Pain, Field loss, Vision loss - Ears, Nose & Throat Ears, Nose & Throat: denies: Ear pain, Hearing loss, Nasal pain, Nasal discharge, Sore throat - Cardiovascular Cariovascular: reports: Palpitations, Exertional dyspnea. denies: Chest pain, Edema, Syncope - Respiratory Respiratory: reports: Cough, Snoring, SOB with exertion. denies: Sputum production, Wheezing - Gastrointestinal Gastrointestinal: reports: Poor appetite. denies: Abdominal pain, Abdominal distention, Constipation, Change in bowel habits, Nausea, Vomiting - Genitourinary Genitourinary: reports: Other (mason catheter for history of bladder cancer). denies: Dysuria, Frequency, Urgency - Musculoskeletal Musculoskeletal: denies: Muscle aches, Limited range of motion, Muscle weakness - Integumentary Integumentary: denies: Rash, Pruritis, Lesions - Neurological Neurological: reports: Numbness (in toes, present for 20 years). denies: General weakness, Focal weakness, Headache, Dizziness, Abnormal gait - Psychiatric Psychiatric: reports: Anxiety - Endocrine Endocrine: denies: Polyuria, Polydypsia, Polyphagia - Hematologic/Lymphatic Hematologic/Lymphatic: denies: Anemia, Bruising <AndreElizabeth - Last Filed: 08/04/23 17:41> Exam - Vital Signs Vital Signs: Vital Signs x48h Temp Pulse Resp BP Pulse Ox O2 Flow Rate 08/05/23 08:19 2 08/05/23 08:05 36.8 C 80 22 149/90 H 92 5 08/05/23 07:31 92 5 Conclusion/Plan - Problem List (1) Pneumonia Conclusion/Plan: Patient has had a non productive cough for weeks with progressive shortness of breath exacerbated by exertion. CT angio was negative PE but did show small right sided pleural effusion and trace left sided pleural effusion with associated overlying atelectasis. Minimal scattered foci of poorly defined opacity can be seen throughout the lungs. This appears to be nonspecfic, yet atypical infection is suspected. This is consistent with his last CT of the chest at the end of Jun, that showed ground glass opacities with an O2 sat around 92-93%. He was started on IV Rocephin + Azithromycin in the ER and will continue for 7 days, finishing on 08/10. - IV Rocephin and Azithromycin day 06/24 - Supplemental oxygen is needed (2) Hypoxia Conclusion/Plan: In the ER, patient was started on supplemental oxygen after satting at 92-93%. Currently, he is on 3L and oxygen saturation is within normal limits. This is likely due to his pneumonia. He was started on IV antibiotics and will complete them on 08/10. - Supplemental oxygen as needed (3) Shortness of breath Conclusion/Plan: Patient is short of breath and complains of dyspnea with exertion. This is likely due to his pneumonia and bronchitis. He will continue on antibiotics and use supplemental oxygen as needed. - Supplemental O2 as needed (4) Anxiety Conclusion/Plan: Patient is incredibly anxious. He expressed fear of going to sleep and never waking up again due to his obstructive sleep apnea. This has caused insomnia for the past few weeks. We will provide prn Ativan for anxiety. - PRN ativan (5) Obstructive sleep apnea Conclusion/Plan: Patient has seen a sleep specialist in the past but is having difficulty following up. He is compliant with his CPAP but would like further evaluation due to a recent recall in his CPAP. - Will have RT evaluate tomorrow - Continue using CPAP at night - Lab Results Fish Bones: 08/04/23 03:32 08/04/23 03:32 <Elizabeth Powell - Last Filed: 08/04/23 17:41> - Lab Results Fish Bones: 08/05/23 04:23 08/05/23 04:23 <Magalie Hernandez - Last Filed: 08/05/23 12:18> Core Measures - Anticipated LOS I expect patient to be DC'd or transferred within 96 hours.: Yes - DVT/VTE - Prophylaxis VTE/DVT Prophylaxis med ordered at admit?: Yes <Elizabeth Powell - Last Filed: 08/04/23 17:41>
--- NOTE | 2023-08-04 14:41 | PHARMACY PROGRESS NOTE ---
- Best Possible Medication History Admit Date and Time: 08/04/23 1114 Processed by: Nursing Medications reviewed in ED?: Yes As the person ultimately responsible for medication therapy, providers are able to order a medication from an existing home medication list in [facility] via the "Reconcile Routine" prior to Confirmation of that medication by litigation support analyst. Such practice is discouraged except when the physician, in their clinical judgment, deems that a medical need exists for a medication without regard to previous use.
[2023-08-04] MEDS: SODIUM CHLORIDE FLUSH 0.9% 10 ML SYRINGE IVP SCH (14:58)
[2023-08-04] MEDS: LORazepam 2 MG/ML VIAL IVP PRN (18:12)
[2023-08-04] MEDS: TAMSULOSIN 0.4 MG CAPSULE PO SCH (20:49)
[2023-08-05 05:04] LABS: BASOPHILS # (AUTO) 0.1 10^3/uL (0.0-0.1); BASOPHILS % (AUTO) 0.7 %; EOSINOPHILS # (AUTO) 0.2 10^3/uL (0.0-0.7); EOSINOPHILS % (AUTO) 2.7 %; HCT - HEMATOCRIT 38.2 % (42.0-52.0); HGB - HEMOGLOBIN 12.6 g/dL (14.0-18.0); LYMPHOCYTES # (AUTO) 0.5 10^3/uL (1.5-3.5); LYMPHOCYTES % (AUTO) 5.5 %; MEAN CORPUSCULAR HEMOGLOBIN 31.3 pg (27.0-31.0); MEAN PLATELET VOLUME 8.8 fL (7.4-11.4); MONOCYTES % (AUTO) 12.3 %; NEUTROPHILS # (AUTO) 6.6 10^3/uL (1.5-6.6); NEUTROPHILS % (AUTO) 78.6 %; PLT - PLATELET COUNT 255 10^3/uL (130-450); RED BLOOD COUNT 4.02 10^6/uL (4.70-6.10); RED CELL DISTRIBUTION WIDTH 12.2 % (12.0-15.0); WHITE BLOOD COUNT 8.4 x10^3/uL (4.8-10.8)
[2023-08-05 05:23] LABS: CALCIUM 8.2 mg/dL (8.5-10.3); CREATININE 0.9 mg/dL (0.6-1.3); POTASSIUM 4.1 mmol/L (3.5-4.5)
--- NOTE | 2023-08-05 07:20 | PROVIDER PROGRESS NOTE ---
Subjective - Prog Note Date Prog Note Date: 08/05/23 Prog Note Time: 07:20 - Subjective Pt reports feeling: Improved Subjective: Yao is a 68 year old male with a history of urothelial cancer s/p BCG local chemotheray treatment and TURP who presents to the ER with anxiety and shortness of breath. He reports he has been feeling progressively weaker and short of breath for the past few weeks. He has dyspnea with exertion and reports significant fatigue when exercising, which is new for him. He also endorses a nonproductive cough. Initial labs in the ER were unremarkable other than an elevated D-dimer at 462.4. CT angio of the chest showed no PE. Small right sided pleural effusion and trace left sided pleural effusion with associated overlying atelectasis. Minimal scattered foci of poorly defined opacity can be seen throughout the lungs. This appears to be nonspecfic, yet atypical infection is suspected. Differential diagnosis includes mild pulmonary edema. EKG was unremarkable. He did have a CT of the chest at the end of Jun that showed ground glass opacities with an O2 sat around 92-93%. Patient is extremely anxious and is worried about his sleep. He has diagnosed obstructive sleep apnea and does sleep with a CPAP with some relief. However, since he started feeling sick a few weeks ago, he has had a hard time sleeping due to fear of going to sleep and never waking up. He admits to being incredibly stressed and is interested in anti-anxiety meds. Due to increased stress, he also reports a decreased appetite but denies any nausea, vomiting, abdominal pain, changes in bowel movements, or weight loss. Today, patient reports feeling better. His cough has improved although he is now coughing up yellow tinted phlegm. His oxygen was increased to 5L and he notes being short of breath when walking to the restroom. He believes the ativan helps with his anxiety and would like to continue on it. Objective - Vital Signs/Intake & Output Vital Signs: Vital Signs x48h Temp Pulse Resp BP Pulse Ox O2 Flow Rate 08/05/23 00:08 36.6 C 72 18 136/81 H 94 6 Intake & Output: Intake & Output 08/02/23 08/03/23 08/04/23 08/05/23 23:59 23:59 23:59 23:59 Intake Total 2100 800 Output Total 525 900 Balance 1575 -100 - Objective General Appearance: positive: No acute distress, Alert, Anxious ENT: positive: No signs of dehydration Neck: positive: No JVD, Trachea midline Respiratory: positive: Rales, Other (SOB with exertion) Cardiovascular: positive: Regular rate & rhythm, No murmur, No gallop Abdomen: positive: Non-tender, Nml bowel sounds, No distention Skin: positive: Color nml, No rash, Warm, Dry Extremities: positive: Non-tender, Full ROM, Nml appearance Neurologic/Psychiatric: positive: Oriented x3 - Lab Results Fish Bones: 08/05/23 04:23 08/05/23 04:23 Other Labs: Lab Results x24hrs 08/05/23 08/05/23 08/04/23 Range/Units 04:23 04:23 07:10 WBC 8.4 (4.8-10.8) x10^3/uL RBC 4.02 L (4.70-6.10) 10^6/uL Hgb 12.6 L (14.0-18.0) g/dL Hct 38.2 L (42.0-52.0) % MCV 95.0 H (80.0-94.0) fL MCH 31.3 H (27.0-31.0) pg MCHC 33.0 (32.0-36.0) g/dL RDW 12.2 (12.0-15.0) % Plt Count 255 (130-450) 10^3/uL MPV 8.8 (7.4-11.4) fL Neut # (Auto) 6.6 (1.5-6.6) 10^3/uL Lymph # (Auto) 0.5 L (1.5-3.5) 10^3/uL [place] # (Auto) 1.0 (0.0-1.0) 10^3/uL Eos # (Auto) 0.2 (0.0-0.7) 10^3/uL Baso # (Auto) 0.1 (0.0-0.1) 10^3/uL Absolute Nucleated RBC 0.00 x10^3/uL Nucleated RBC % 0.0 /100WBC Sodium 135 (135-145) mmol/L Potassium 4.1 (3.5-4.5) mmol/L Chloride 104 (101-111) mmol/L Carbon Dioxide 27 (21-32) mmol/L Anion Gap 4.0 L (6-13) BUN 11 (6-20) mg/dL Creatinine 0.9 (0.6-1.3) mg/dL Estimated GFR (MDRD) 84 L (>89) Glucose 106 H (74-104) mg/dL Lactic Acid 1.2 (0.5-2.2) mmol/L Calcium 8.2 L (8.5-10.3) mg/dL Assessment/Plan - Problem List (1) Pneumonia Impression: Patient has had a non productive cough for weeks with progressive shortness of breath exacerbated by exertion. CT angio was negative PE but did show small right sided pleural effusion and trace left sided pleural effusion with associated overlying atelectasis. Minimal scattered foci of poorly defined opacity can be seen throughout the lungs. This appears to be nonspecfic, yet atypical infection is suspected. This is consistent with his last CT of the chest at the end of Jun, that showed ground glass opacities with an O2 sat around 92-93%. He was started on IV Rocephin + Azithromycin in the ER and will continue for 5 days, finishing on 08/08. Currently, he has no infectious symptoms and WBC is at 8.8. - IV Rocephin and Azithromycin day 07/23 - Supplemental oxygen is needed - prn Mucinex (2) Hypoxia Conclusion/Plan: In the ER, patient was started on supplemental oxygen after satting at 92-93%. Currently, he is on 5L and oxygen saturation is within normal limits. This is likely due to his pneumonia. He was started on IV antibiotics and will complete them on 08/08. We will add albuterol neb as needed to help with his breathing. - Supplemental oxygen as needed - albuterol neb as needed (3) Shortness of breath Conclusion/Plan: Patient is short of breath and complains of dyspnea with exertion. This is likely due to his pneumonia and bronchitis. He will continue on antibiotics and use supplemental oxygen as needed. - Supplemental O2 as needed (4) Anxiety Conclusion/Plan: Patient is incredibly anxious. He expressed fear of going to sleep and never waking up again due to his obstructive sleep apnea. This has caused insomnia for the past few weeks. We will provide prn Ativan for anxiety. - PRN ativan (5) Obstructive sleep apnea Conclusion/Plan: Patient has seen a sleep specialist in the past but is having difficulty following up. He is compliant with his CPAP and his O2 sat was 95% throughout the night. - Continue using CPAP at night
[2023-08-05] MEDS: ENOXAPARIN 40 MG/0.4 ML SYRINGE SUBQ SCH (08:28)
[2023-08-05] MEDS: cefTRIAXone 1 GM in SODIUM CHLORIDE 0.9% MINIBAG 100 ML IV SCH (08:29)
[2023-08-05] MEDS: AZITHROMYCIN INJ 500 MG in SODIUM CHLORIDE 0.9% 250 ML IV SCH (08:29)
[2023-08-05] MEDS: guaiFENesin 600 MG TABLET PO SCH (17:46)
[2023-08-05] MEDS: ACETAMINOPHEN 325 MG TABLET PO PRN (18:59)
[2023-08-06 05:27] LABS: BASOPHILS # (AUTO) 0.1 10^3/uL (0.0-0.1); BASOPHILS % (AUTO) 0.6 %; EOSINOPHILS # (AUTO) 0.2 10^3/uL (0.0-0.7); HCT - HEMATOCRIT 36.8 % (42.0-52.0); HGB - HEMOGLOBIN 12.3 g/dL (14.0-18.0); LYMPHOCYTES # (AUTO) 0.3 10^3/uL (1.5-3.5); LYMPHOCYTES % (AUTO) 4.2 %; MEAN CORPUSCULAR HEMOGLOBIN 31.5 pg (27.0-31.0); MEAN CORPUSCULAR HGB CONC 33.4 g/dL (32.0-36.0); MEAN CORPUSCULAR VOLUME 94.1 fL (80.0-94.0); MEAN PLATELET VOLUME 8.8 fL (7.4-11.4); MONOCYTES % (AUTO) 12.8 %; NEUTROPHILS # (AUTO) 6.4 10^3/uL (1.5-6.6); PLT - PLATELET COUNT 262 10^3/uL (130-450); RED BLOOD COUNT 3.91 10^6/uL (4.70-6.10); RED CELL DISTRIBUTION WIDTH 12.2 % (12.0-15.0); WHITE BLOOD COUNT 8.1 x10^3/uL (4.8-10.8)
[2023-08-06 05:46] LABS: CALCIUM 8.1 mg/dL (8.5-10.3); CREATININE 0.8 mg/dL (0.6-1.3); POTASSIUM 3.7 mmol/L (3.5-4.5)
--- NOTE | 2023-08-06 07:23 | PROVIDER PROGRESS NOTE ---
Subjective - Prog Note Date Prog Note Date: 08/06/23 Prog Note Time: 07:23 - Subjective Pt reports feeling: Improved Subjective: Yao is a 68 year old male with a history of urothelial cancer s/p BCG local chemotheray treatment and TURP who presents to the ER with anxiety and shortness of breath. He reports he has been feeling progressively weaker and short of breath for the past few weeks. He has dyspnea with exertion and reports significant fatigue when exercising, which is new for him. He also endorses a nonproductive cough. Initial labs in the ER were unremarkable other than an elevated D-dimer at 462.4. CT angio of the chest showed no PE. Small right sided pleural effusion and trace left sided pleural effusion with associated overlying atelectasis. Minimal scattered foci of poorly defined opacity can be seen throughout the lungs. This appears to be nonspecfic, yet atypical infection is suspected. Differential diagnosis includes mild pulmonary edema. EKG was unremarkable. He did have a CT of the chest at the end of Jun that showed ground glass opacities with an O2 sat around 92-93%. Patient is extremely anxious and is worried about his sleep. He has diagnosed obstructive sleep apnea and does sleep with a CPAP with some relief. However, since he started feeling sick a few weeks ago, he has had a hard time sleeping due to fear of going to sleep and never waking up. He admits to being incredibly stressed and is interested in anti-anxiety meds. Due to increased stress, he also reports a decreased appetite but denies any nausea, vomiting, abdominal pain, changes in bowel movements, or weight loss. 08/05: O2 increased to 5L. dyspnea with exertion. cough has improved but there is now more mucus. Today, patient reports feeling better. He is still out of breath when walking but he was able to walk up and down the halls. He feels stronger and is able to sit up on the edge of his bed without assistance. Patient is still anxious and would like to stay in the hospital for the next few days until his respiratory symptoms have resolved. He would like to take his home supplements and the pharmacist will meet with him to determine if it is ok to take while inpatient. Objective - Vital Signs/Intake & Output Vital Signs: Vital Signs x48h Temp Pulse Resp BP Pulse Ox O2 Flow Rate 08/06/23 06:44 92 5 08/06/23 00:00 37.2 C 69 20 122/64 94 2 08/05/23 23:50 2 Intake & Output: Intake & Output 08/03/23 08/04/23 08/05/23 08/06/23 23:59 23:59 23:59 23:59 Intake Total 2100 8020 800 Output Total 525 4375 1825 Balance 1575 3645 -1025 - Objective General Appearance: positive: No acute distress, Anxious Eyes Bilateral: positive: Normal inspection ENT: positive: No signs of dehydration Neck: positive: Nml inspection Respiratory: positive: Other (SOB, 5L O2) Cardiovascular: positive: Regular rate & rhythm, No murmur, No gallop Abdomen: positive: Non-tender, Nml bowel sounds, No distention Skin: positive: Color nml, No rash, Warm, Dry Extremities: positive: Non-tender, Full ROM, Nml appearance Neurologic/Psychiatric: positive: Oriented x3 - Lab Results Fish Bones: 08/06/23 04:35 08/06/23 04:35 Other Labs: Lab Results x24hrs 08/06/23 08/06/23 Range/Units 04:35 04:35 WBC 8.1 (4.8-10.8) x10^3/uL RBC 3.91 L (4.70-6.10) 10^6/uL Hgb 12.3 L (14.0-18.0) g/dL Hct 36.8 L (42.0-52.0) % MCV 94.1 H (80.0-94.0) fL MCH 31.5 H (27.0-31.0) pg MCHC 33.4 (32.0-36.0) g/dL RDW 12.2 (12.0-15.0) % Plt Count 262 (130-450) 10^3/uL MPV 8.8 (7.4-11.4) fL Neut # (Auto) 6.4 (1.5-6.6) 10^3/uL Lymph # (Auto) 0.3 L (1.5-3.5) 10^3/uL [place] # (Auto) 1.0 (0.0-1.0) 10^3/uL Eos # (Auto) 0.2 (0.0-0.7) 10^3/uL Baso # (Auto) 0.1 (0.0-0.1) 10^3/uL Absolute Nucleated RBC 0.00 x10^3/uL Nucleated RBC % 0.0 /100WBC Sodium 137 (135-145) mmol/L Potassium 3.7 (3.5-4.5) mmol/L Chloride 104 (101-111) mmol/L Carbon Dioxide 28 (21-32) mmol/L Anion Gap 5.0 L (6-13) BUN 10 (6-20) mg/dL Creatinine 0.8 (0.6-1.3) mg/dL Estimated GFR (MDRD) 97 (>89) Glucose 101 (74-104) mg/dL Calcium 8.1 L (8.5-10.3) mg/dL Assessment/Plan - Problem List (1) Pneumonia Impression: Patient has had a non productive cough for weeks with progressive shortness of breath exacerbated by exertion. CT angio was negative PE but did show small right sided pleural effusion and trace left sided pleural effusion with associated overlying atelectasis. Minimal scattered foci of poorly defined opacity can be seen throughout the lungs. This appears to be nonspecfic, yet atypical infection is suspected. This is consistent with his last CT of the chest at the end of Jun, that showed ground glass opacities with an O2 sat around 92-93%. He was started on IV Rocephin + Azithromycin in the ER and will continue for 5 days, finishing on 08/08. Currently, he has no infectious symptoms and WBC is at 8.8.1. - IV Rocephin and Azithromycin day 3/5 - Supplemental oxygen is needed - prn Mucinex (2) Hypoxia Conclusion/Plan: In the ER, patient was started on supplemental oxygen after satting at 92-93%. Currently, he is on 5L and oxygen saturation is within normal limits. This is likely due to his pneumonia. He was started on IV antibiotics and will complete them on 08/08. We will add albuterol neb as needed to help with his breathing. - Supplemental oxygen as needed - albuterol neb as needed (3) Shortness of breath Conclusion/Plan: Patient is short of breath and complains of dyspnea with exertion. This is likely due to his pneumonia and bronchitis. He will continue on antibiotics and use supplemental oxygen as needed. - Supplemental O2 as needed (4) Anxiety Conclusion/Plan: Patient is incredibly anxious. He expressed fear of going to sleep and never waking up again due to his obstructive sleep apnea. This has caused insomnia for the past few weeks. We will provide prn Ativan for anxiety. - PRN ativan (5) Obstructive sleep apnea Conclusion/Plan: Patient has seen a sleep specialist in the past but is having difficulty following up. He is compliant with his CPAP and his O2 sat was 95% throughout the night. - Continue using CPAP at night
[2023-08-06] MEDS: MULTIVITAMIN TABLET PO SCH (16:57)
[2023-08-06] MEDS: SODIUM CHLORIDE FLUSH 0.9% 10 ML SYRINGE IVP PRN (21:27)
[2023-08-07 05:08] LABS: BASOPHILS % (AUTO) 0.5 %; EOSINOPHILS # (AUTO) 0.3 10^3/uL (0.0-0.7); EOSINOPHILS % (AUTO) 3.6 %; HCT - HEMATOCRIT 36.4 % (42.0-52.0); HGB - HEMOGLOBIN 12.2 g/dL (14.0-18.0); LYMPHOCYTES # (AUTO) 0.4 10^3/uL (1.5-3.5); LYMPHOCYTES % (AUTO) 5.1 %; MEAN CORPUSCULAR HGB CONC 33.5 g/dL (32.0-36.0); MEAN CORPUSCULAR VOLUME 92.6 fL (80.0-94.0); MEAN PLATELET VOLUME 8.6 fL (7.4-11.4); MONOCYTES % (AUTO) 12.8 %; NEUTROPHILS # (AUTO) 6.2 10^3/uL (1.5-6.6); NEUTROPHILS % (AUTO) 77.8 %; PLT - PLATELET COUNT 267 10^3/uL (130-450); RED BLOOD COUNT 3.93 10^6/uL (4.70-6.10)
[2023-08-07 05:23] LABS: CALCIUM 8.2 mg/dL (8.5-10.3); CREATININE 0.8 mg/dL (0.6-1.3); POTASSIUM 3.6 mmol/L (3.5-4.5)
[2023-08-07] MEDS: polyethylene glycoL 3350 17 GM PACKET PO SCH (08:44)
[2023-08-07] MEDS: ALBUTEROL NEB 2.5 MG/3 ML INH PRN (14:55)
--- NOTE | 2023-08-07 18:43 | PROVIDER PROGRESS NOTE ---
Assessment/Plan - Problem List (1) CAP (community acquired pneumonia) Assessment/Plan: Patient has had a non productive cough for weeks with progressive shortness of breath exacerbated by exertion. CT angio was negative PE but did show small right sided pleural effusion and trace left sided pleural effusion with associated overlying atelectasis. Minimal scattered foci of poorly defined opacity can be seen throughout the lungs. This appears to be nonspecfic, yet atypical infection is suspected. This is consistent with his last CT of the chest at the end of Jun, that showed ground glass opacities with an O2 sat around 92-93%. He was started on IV Rocephin + Azithromycin His cough is hard to bring up but is slightly more productive. Today he had a fever of 38.2C Plan: Cont IV Rocephin and Azithromycin Will get repeat blood cx and a spt cx due to fever today Cont supplemental oxygen with target sat 92% or above Will make Mucinex scheduled Cont IS (2) Hypoxia Conclusion/Plan: In the ER, patient was started on supplemental oxygen . Currently, he is need ing6L.. down to 4L today to maintain sats. Cause is likely due to his pneumonia. He was started on IV antibiotics. We added albuterol neb as needed to help with his breathing. Plan; Cont supplemental oxygen with targer saturation 92% or above Cont albuterol neb as needed (3) Shortness of breath Conclusion/Plan: Patient is short of breath and complains of dyspnea with exertion. This is likely due to his pneumonia and bronchitis. He will continue on antibiotics and use supplemental oxygen as needed. - Supplemental O2 as needed (4) Anxiety Conclusion/Plan: Patient was incredibly anxious. He expressed fear of going to sleep and never waking up again due to his obstructive sleep apnea plus PNA. This has caused i nsomnia for the past few weeks. Plan: PRN ativan (5) Obstructive sleep apnea Conclusion/Plan: Patient has seen a sleep specialist in the past but is having difficulty following up. He is compliant with his CPAP (and his O2 sat was 95% throughout the night). Plan: Continue using his home CPAP device at night - Current Meds Current Meds: Current Medications Generic Name Dose Route Start Last Admin Trade Name Freq PRN Reason Stop Dose Admin Acetaminophen 650 mg 08/04/23 11:14 08/07/23 16:24 Acetaminophen 325 Mg Tablet PO 650 mg Q4HR PRN Administration Pain 1 to 4, or Fever Albuterol 2.5 mg 08/05/23 12:10 08/07/23 14:55 Albuterol Neb 2.5 Mg/3 Ml INH 2.5 mg RTQ4H PRN Administration Wheezing Enoxaparin Sodium 40 mg 08/05/23 09:00 08/07/23 08:44 Enoxaparin 40 Mg/0.4 Ml Syringe SUBQ 40 mg DAILY SHEILA Administration Guaifenesin 600 mg 08/05/23 21:00 08/07/23 08:44 Guaifenesin 600 Mg Tablet PO 600 mg BID SHEILA Administration Ceftriaxone Sodium 1 gm/ 100 mls @ 200 mls/hr 08/05/23 09:00 08/07/23 09:43 Sodium Chloride IV 08/08/23 09:29 Infused DAILY SHEILA Infusion Lorazepam 0.5 mg 08/04/23 17:41 08/07/23 14:52 Lorazepam 2 Mg/Ml Vial IVP 0.5 mg Q6H PRN Administration Anxiety and insomnia Multivitamins 1 tab 08/06/23 17:00 08/07/23 08:44 Multivitamin Tablet PO 1 tab DAILYWM SHEILA Administration Polyethylene Glycol 17 gm 08/07/23 09:00 08/07/23 08:44 Polyethylene Glycol 3350 17 Gm Packet PO 17 gm DAILY SHEILA Administration Sodium Chloride 10 ml 08/04/23 11:14 08/06/23 21:27 Sodium Chloride Flush 0.9% 10 Ml Syringe IVP 10 ml PRN PRN Administration NEEDED PER PROVIDER ORDERS Sodium Chloride 10 ml 08/04/23 17:00 08/07/23 15:44 Sodium Chloride Flush 0.9% 10 Ml Syringe IVP 10 ml 0100,0900,1700 SHEILA Administration Tamsulosin HCl 0.4 mg 08/04/23 21:00 08/07/23 08:44 Tamsulosin 0.4 Mg Capsule PO 0.4 mg DAILY SHEILA Administration - Lab Result Fish Bone Diagrams: 08/07/23 04:25 08/07/23 04:25 Subjective - Subjective Patient Reports: Feeling Better, Cough (white-yellow sptum, hard to bring up), Shortness of Breath (at mid-day) Nursing Reports: Other (Had a fever of 38.2 this late afternoon) Objective Vital Signs: Vital Signs - 24 hr 08/06/23 08/06/23 08/06/23 18:55 20:10 21:26 Temperature 38.0 C H 37.1 C Heart Rate Heart Rate [ Brachial] Respiratory Rate Blood Pressure [Right Brachial artery] O2 Saturation If not protocol 5 : Oxygen Flow, liters/minute 08/06/23 08/06/23 08/07/23 22:20 23:24 06:57 Temperature 36.9 C Heart Rate Heart Rate [ 83 Brachial] Respiratory 18 Rate Blood Pressure 152/95 H [Right Brachial artery] O2 Saturation 95 92 If not protocol 5 5 5 : Oxygen Flow, liters/minute 08/07/23 08/07/23 08/07/23 07:24 07:48 08:45 Temperature 37.9 C Heart Rate Heart Rate [ 84 Brachial] Respiratory 20 22 Rate Blood Pressure 137/85 H [Right Brachial artery] O2 Saturation 91 L 92 If not protocol 5 5 4 : Oxygen Flow, liters/minute 08/07/23 08/07/23 08/07/23 15:00 16:00 16:52 Temperature 38.2 C H 37.3 C Heart Rate 69 Heart Rate [ 98 Brachial] Respiratory 17 20 Rate Blood Pressure 142/89 H [Right Brachial artery] O2 Saturation 93 If not protocol 4 4 : Oxygen Flow, liters/minute 08/07/23 16:54 Temperature 37.3 C Heart Rate Heart Rate [ Brachial] Respiratory Rate Blood Pressure [Right Brachial artery] O2 Saturation If not protocol : Oxygen Flow, liters/minute Oxygen O2 Source Nasal cannula I&O (Last 24 Hrs): Intake and Output Totals x24h 08/05/23 08/06/23 08/07/23 23:59 23:59 23:59 Intake Total 8020 2617.000 2080 Output Total 4375 6025 2750 Balance 3645 -3408.000 -670 General: Alert, Oriented x3 HEENT: Mucous membr. moist/pink, Other (wearing O2 via n.c.) Neck: Supple, Other ([place], cannot eval neck) Neuro: Alert, Non Focal Cardiovascular: Regular rate, No murmurs Respiratory: No respiratory distress (on suppl O2 at 4L via n.c.), Rhonchi (L base) Abdomen: Soft, No tenderness Extremities: No clubbing, No edema, No tenderness/swelling - Results Results: Laboratory Results WBC 8.0 x10^3/uL (4.8-10.8) 08/07/23 04:25 RBC 3.93 10^6/uL (4.70-6.10) L 08/07/23 04:25 Hgb 12.2 g/dL (14.0-18.0) L 08/07/23 04:25 Hct 36.4 % (42.0-52.0) L 08/07/23 04:25 MCV 92.6 fL (80.0-94.0) 08/07/23 04:25 MCH 31.0 pg (27.0-31.0) 08/07/23 04:25 MCHC 33.5 g/dL (32.0-36.0) 08/07/23 04:25 RDW 12.0 % (12.0-15.0) 08/07/23 04:25 Plt Count 267 10^3/uL (130-450) 08/07/23 04:25 MPV 8.6 fL (7.4-11.4) 08/07/23 04:25 Neut # (Auto) 6.2 10^3/uL (1.5-6.6) 08/07/23 04:25 Lymph # (Auto) 0.4 10^3/uL (1.5-3.5) L 08/07/23 04:25 [place] # (Auto) 1.0 10^3/uL (0.0-1.0) 08/07/23 04:25 Eos # (Auto) 0.3 10^3/uL (0.0-0.7) 08/07/23 04:25 Baso # (Auto) 0.0 10^3/uL (0.0-0.1) 08/07/23 04:25 Absolute Nucleated RBC 0.00 x10^3/uL 08/07/23 04:25 Nucleated RBC % 0.0 /100WBC 08/07/23 04:25 D-Dimer 462.4 ng/mL (200.0-255.0) H 08/04/23 03:32 VBG pH 7.469 (7.31-7.41) H 08/04/23 03:32 VBG pCO2 34.5 mmHg (41-51) L 08/04/23 03:32 VBG pO2 55.7 mmHg (25-47) H 08/04/23 03:32 VBG HCO3 24.5 mmol/L (23-28) 08/04/23 03:32 VBG Total CO2 25.5 mmol/L (24-29) 08/04/23 03:32 VBG O2 Saturation 90.0 % (60-80) H 08/04/23 03:32 VBG Base Excess 1.3 mmol/L (-2 - +2) 08/04/23 03:32 Sodium 135 mmol/L (135-145) 08/07/23 04:25 Potassium 3.6 mmol/L (3.5-4.5) 08/07/23 04:25 Chloride 102 mmol/L (101-111) 08/07/23 04:25 Carbon Dioxide 27 mmol/L (21-32) 08/07/23 04:25 Anion Gap 6.0 (6-13) 08/07/23 04:25 BUN 9 mg/dL (6-20) 08/07/23 04:25 Creatinine 0.8 mg/dL (0.6-1.3) 08/07/23 04:25 Estimated GFR (MDRD) 97 (>89) 08/07/23 04:25 Glucose 105 mg/dL (74-104) H 08/07/23 04:25 Lactic Acid 1.2 mmol/L (0.5-2.2) 08/04/23 07:10 Calcium 8.2 mg/dL (8.5-10.3) L 08/07/23 04:25 Total Bilirubin 0.7 mg/dL (0.2-1.0) 08/04/23 03:32 AST 11 IU/L (10-42) 08/04/23 03:32 ALT 9 IU/L (10-60) L 08/04/23 03:32 Alkaline Phosphatase 50 IU/L (42-121) 08/04/23 03:32 B-Natriuretic Peptide 17 pg/mL (5-100) 08/04/23 03:32 Total Protein 7.4 g/dL (6.4-8.9) 08/04/23 03:32 Albumin 3.5 g/dL (3.2-5.5) 08/04/23 03:32 Globulin 3.9 g/dL (2.1-4.2) 08/04/23 03:32 Albumin/Globulin Ratio 0.9 (1.0-2.2) L 08/04/23 03:32 Lipase 13 U/L (11-82) 08/04/23 03:32 Nasal Adenovirus (PCR) NOT DETECTED 08/04/23 04:00 Nasal B. parapertussis DNA (PCR) NOT DETECTED 08/04/23 04:00 Nasal Coronavir 229E PCR NOT DETECTED 08/04/23 04:00 Nasal Coronavir HKU1 PCR NOT DETECTED 08/04/23 04:00 Nasal Coronavir NL63 PCR NOT DETECTED 08/04/23 04:00 Nasal Coronavir OC43 PCR NOT DETECTED 08/04/23 04:00 Nasal Enterovir/Rhinovir PCR NOT DETECTED 08/04/23 04:00 Nasal Influenza B PCR NOT DETECTED 08/04/23 04:00 Nasal Influenza A PCR NOT DETECTED 08/04/23 04:00 Nasal Parainfluen 1 PCR NOT DETECTED 08/04/23 04:00 Nasal Parainfluen 2 PCR NOT DETECTED 08/04/23 04:00 Nasal Parainfluen 3 PCR NOT DETECTED 08/04/23 04:00 Nasal Parainfluen 4 PCR NOT DETECTED 08/04/23 04:00 Nasal RSV (PCR) NOT DETECTED 08/04/23 04:00 Nasal B.pertussis DNA PCR NOT DETECTED 08/04/23 04:00 Nasal C.pneumoniae (PCR) NOT DETECTED 08/04/23 04:00 Nando Human Metapneumo PCR NOT DETECTED 08/04/23 04:00 Nasal M.pneumoniae (PCR) NOT DETECTED 08/04/23 04:00 Nasal SARS-CoV-2 (PCR) NOT DETECTED 08/04/23 04:00
[2023-08-08] MEDS: ONDANSETRON 4 MG/2 ML VIAL IVP PRN (08:44)
[2023-08-08] MEDS: TAMSULOSIN 0.4 MG CAPSULE PO STA (09:18)
[2023-08-08] MEDS: guaiFENesin 600 MG TABLET PO SCH (09:19)
--- NOTE | 2023-08-08 11:07 | XRAY Report ---
PROCEDURE: Chest 1V INDICATIONS: Worsening hypoxia, repeat fever TECHNIQUE: One view of the chest was acquired. COMPARISON: CT chest 08/04/2023 FINDINGS: Surgical changes and devices: Wireless pacer. Lungs and pleura: Diffuse appearance of increased pulmonary vascularity with bilateral effusions. Mediastinum: Mediastinal contours appear normal. Heart size is normal. Bones and chest wall: No suspicious bony lesions. Overlying soft tissues appear unremarkable. IMPRESSION: Diffuse increased vascularity with effusions appearing worse compared to prior exam. Developing under lying areas of airspace disease such as pneumonia/atelectasis cannot be excluded. Reviewed by: Tory Mays MD on 08/08/2023 11:06 AM PST Approved by: Tory Mays MD on 08/08/2023 11:06 AM PST Station ID: [id number]
[2023-08-08] MEDS: MORPHINE 2 MG/ML CARPUJECT IVP STA (11:13)
[2023-08-08 11:25] LABS: ABG BASE EXCESS 1.6 mmol/L (-2.0-3.0); ABG HCO3 25.2 mmol/L (22.0-26.0); ABG OXYGEN SATURATION 90 % (94-98); ABG PCO2 36 mmHg (34-45); ABG PH 7.46 (7.35-7.45); ABG PO2 58 mmHg (80-100); ABG TCO2 26.3 MMOL/L (21.0-29.0); ALLEN TEST POSITIVE
[2023-08-08] MEDS: FUROSEMIDE 20 MG/2 ML VIAL IVP STA (11:38)
[2023-08-08 14:09] LABS: B. PARAPERTUSSIS- RESP PCR PAN NOT DETECTED; B. PERTUSSIS- RESP PCR PANEL NOT DETECTED; C. PNEUMONIAE- RESP PCR PANEL NOT DETECTED; CORONAVIRUS 229E-RESP PCR NOT DETECTED; CORONAVIRUS HKU1-RESP PCR NOT DETECTED; CORONAVIRUS NL63-RESP PCR NOT DETECTED; CORONAVIRUS OC43-RESP PCR NOT DETECTED; HUMAN METAPNEUMOVIRUS NOT DETECTED; INFLUENZA A- RESP PCR PANEL NOT DETECTED; INFLUENZA B - RESP PCR PANEL NOT DETECTED; M. PNEUMONIAE- RESP PCR PANEL NOT DETECTED; PARAINFLUENZA VIRUS 1 NOT DETECTED; PARAINFLUENZA VIRUS 2 NOT DETECTED; PARAINFLUENZA VIRUS 3 NOT DETECTED; PARAINFLUENZA VIRUS 4 NOT DETECTED; RHINOVIRUS/ENTEROVIRUS NOT DETECTED; RSV- RESP PCR PANEL NOT DETECTED; SARS-CoV-2 -RESP PCR PANEL NOT DETECTED
[2023-08-08] MEDS ORDERED: iohexoL-300 100 ML VIAL ONE (14:44)
[2023-08-08] MEDS: iohexoL-300 100 ML VIAL IVP ONE (15:16)
[2023-08-08 17:07] LABS: BASOPHILS % (AUTO) 0.5 %; EOSINOPHILS # (AUTO) 0.2 10^3/uL (0.0-0.7); EOSINOPHILS % (AUTO) 2.7 %; HGB - HEMOGLOBIN 12.5 g/dL (14.0-18.0); LYMPHOCYTES # (AUTO) 0.4 10^3/uL (1.5-3.5); LYMPHOCYTES % (AUTO) 4.3 %; MEAN CORPUSCULAR HEMOGLOBIN 30.9 pg (27.0-31.0); MEAN CORPUSCULAR HGB CONC 33.8 g/dL (32.0-36.0); MEAN CORPUSCULAR VOLUME 91.4 fL (80.0-94.0); MEAN PLATELET VOLUME 8.5 fL (7.4-11.4); MONOCYTES # (AUTO) 1.1 10^3/uL (0.0-1.0); MONOCYTES % (AUTO) 13.2 %; NEUTROPHILS # (AUTO) 6.8 10^3/uL (1.5-6.6); NEUTROPHILS % (AUTO) 79.1 %; PLT - PLATELET COUNT 291 10^3/uL (130-450); RED BLOOD COUNT 4.05 10^6/uL (4.70-6.10); WHITE BLOOD COUNT 8.6 x10^3/uL (4.8-10.8)
[2023-08-08 17:18] LABS: BILIRUBIN,DIRECT 0.12 mg/dL (0.03-0.18); BILIRUBIN,TOTAL 0.4 mg/dL (0.2-1.0); CALCIUM 8.3 mg/dL (8.5-10.3); CREATININE 0.7 mg/dL (0.6-1.3); POTASSIUM 3.6 mmol/L (3.5-4.5); TOTAL PROTEIN 6.8 g/dL (6.4-8.9)
--- NOTE | 2023-08-08 17:59 | CT Report ---
PROCEDURE: Angio Chest INDICATIONS: Worse hypoxia, pleuritic CP, eval for PE CONTRAST: 100 ML OMNI 300 TECHNIQUE: After the administration of intravenous contrast, 2 mm axial images were acquired from the pulmonary apices to the posterior costophrenic angles during the arterial phase. In addition, 1 mm lung kernel and 5 mm soft tissue kernel reconstructions were performed. 3-dimensional coronal oblique maximum int ensity projection (MIP) reformats, 8 mm axial MIP, and 5 mm coronal and sagittal MPR reformats were t hen performed through the thorax. For radiation dose reduction, the following was used: automated exp osure control, adjustment of mA and/or kV according to patient size. COMPARISON: Retroperitoneal ultrasound on May 22, 2023. CT chest on August 04, 2023 FINDINGS: Image quality: Excellent. Large vessels: Enhancement of the pulmonary arteries is adequate. No acute filling defect to the leve l of the proximal subsegmental pulmonary arteries. Main pulmonary artery is mildly enlarged measuring 3.2 cm. Thoracic aorta demonstrates no dissection or aneurysm. Ascending thoracic aorta measures 3.9 x 3.7 cm. Lungs and pleura: Small left and moderate right pleural effusions. Bilateral lower lobe compressive a telectasis. Diffuse interlobular septal thickening. Right upper lobe solid pulmonary nodule measuring 0.4 cm (5/14). Left fissure solid pulmonary nodule measuring 0.5 cm (5/22). Middle lobe solid pulmon baldomero nodule measuring 0.6 cm (5/14). Mediastinum: Heart size is mildly enlarged. No pericardial effusion. No large vessel abnormality. No mediastinal adenopathy by size criteria. Left ventricular wall thickening. Mild LAD coronary vessel calcification. Chest wall and lower neck: Thyroid is unremarkable. No axillary or supraclavicular adenopathy by size . Bones: No aggressive osseous abnormality. Mild multilevel degenerative changes of the spine. Upper Abdomen: Limited images of the upper abdomen demonstrate moderate right sided hydronephrosis as seen on ultrasound dated May 22, 2023. IMPRESSION: 1.No acute pulmonary embolism to the level of the proximal subsegmental pulmonary arteries. No acute aortic pathology. Main pulmonary artery is enlarged which may be seen in the setting of pulmonary hyp ertension. 2.Moderate right and small left pleural effusions with pulmonary edema suggestive of volume overload, increased compared to CT chest dated August 04, 2023. Findings may be secondary to heart failure. Consider correlation with ECHO. 3.A few scattered solid pulmonary nodules measuring up to 0.6 cm which are indeterminate. Consider fo llow-up CT chest in 3-6 months. 4.Partially visualized right-sided hydronephrosis as seen on ultrasound dated May 22, 2023. Reviewed by: Esperanza Jasso MD on 08/08/2023 5:58 PM PST Approved by: Esperanza Jasso MD on 08/08/2023 5:58 PM PST Station ID: [id number]
[2023-08-08] MEDS: PIPERACILLIN/TAZOBACTAM 3.375 GM in SODIUM CHLORIDE 0.9% MINIBAG 100 ML IV SCH (18:21)
[2023-08-08 18:26] LABS: BILIRUBIN,URINE NEGATIVE (NEGATIVE); GLUCOSE, URINE (UA) NEGATIVE (NEGATIVE); KETONES,URINE (UA) NEGATIVE (NEGATIVE); LEUKOCYTE ESTERASE, URINE NEGATIVE (NEGATIVE); NITRITE,URINE NEGATIVE (NEGATIVE); OCCULT BLOOD,URINE SMALL (NEGATIVE); PROTEIN,URINE NEGATIVE (NEGATIVE); UROBILINOGEN,URINE 0.2 (NORMAL) E.U./dL (NORMAL)
[2023-08-08 18:29] LABS: CLARITY,URINE CLEAR (CLEAR)
[2023-08-08 18:38] LABS: BACTERIA,URINE None Seen /HPF (None Seen); SQUAMOUS EPITHELIAL CELL,UR NONE SEEN (<= Few); WBC,URINE 0-3 /HPF (0-3)
--- NOTE | 2023-08-08 19:20 | PROVIDER PROGRESS NOTE ---
Assessment/Plan - Problem List (1) Acute respiratory failure with hypoxia Assessment/Plan: In the ER, patient was started on supplemental oxygen. He was needing 6 L/min via nasal cannula, down to 4 L/min yesterday. Overnight he worsened and needed to be put on 5 L via rebreather mask. ABG was done today that shows saturations of 88% and he needs to be started on Oxymizer Chest x-ray was done today because of the worsening hypoxia and it shows pulmonary edema, unchanged infiltrates, slightly larger bilateral pleural effusions. CTA of chest was done today to rule out PE and it was ruled out. His BNP came back normal. Two troponins came back normal ruling out an VT. Plan; Cont supplemental oxygen with target saturation 92% or above Will treat the underlying fluid overload, pleural effusions, pneumonia Cont albuterol neb as needed (2) Pleural effusion Assessment/Plan: This is likely due to receiving IV fluids since he has been admitted Plan: Lasix IV x 1 given today Will consider doing ultrasound-guided thoracentesis (3) Fever Assessment/Plan: Yesterday afternoon he had a fever. Bld cx were drawn. This afternoon he spiked a fever of 38.2C again. The patient has finished empiric treatment with IV ceftriaxone and IV Zithromax for pneumonia. His chest x-ray today did not show worsening of pneumonia. His CTA chest today confirmed unchanged pneumonia, pleural effusions are present. The CTA chest mentioned that he has right-sided hydronephrosis. Lactic acid level was checked and it was normal. WBC was nly elevated today, it was 8 yesterday and 8.6 (all labs were reviewed) Plan: Will start him on IV Zosyn and IV Vanco, for broader urinary source and for MRSA coverage Will obtain CT abdomen pelvis to evaluate for Pilyelonephritis and get detailed information about his hydronephrosis Obtain U/A for Gram stain and culture (4) CAP (community acquired pneumonia) Assessment/Plan: Patient had a non productive cough for weeks with progressive shortness of breath exacerbated by exertion. CT angio was negative PE but did show small right sided pleural effusion and trace left sided pleural effusion with associated overlying atelectasis. Minimal scattered foci of poorly defined opacity can be seen throughout the lungs. This was consistent with his last CT of the chest at the end of Jun, that showed ground glass opacities He was started on IV Rocephin + Azithromycin and has completed his course of tx today Because of fever yesterday and today, CT a chest was done that did not show worsening pneumonia and nodules were described Plan: I will recheck respiratory PCR His antibiotics will be broadened but the source appears to be urinary Cont supplemental oxygen with target sat 92% or above Cont Mucinex scheduled Cont IS Consider reaching out to infectious disease for their input (5) Anxiety Conclusion/Plan: Patient was anxious. He expressed fear of going to sleep and never waking up again due to his obstructive sleep apnea plus PNA. This has caused insomnia for the past few weeks. Plan: PRN ativan was ordered (6) Obstructive sleep apnea Conclusion/Plan: Patient has seen a sleep specialist in the past but is having difficulty following up. He is compliant with his CPAP (and his O2 sat was 95% throughout the night). Plan: Continue using his home CPAP device at night while here - Current Meds Current Meds: Current Medications Generic Name Dose Route Start Last Admin Trade Name Freq PRN Reason Stop Dose Admin Acetaminophen 650 mg 08/04/23 11:14 08/08/23 16:13 Acetaminophen 325 Mg Tablet PO 650 mg Q4HR PRN Administration Pain 1 to 4, or Fever Albuterol 2.5 mg 08/05/23 12:10 08/07/23 14:55 Albuterol Neb 2.5 Mg/3 Ml INH 2.5 mg RTQ4H PRN Administration Wheezing Enoxaparin Sodium 40 mg 08/05/23 09:00 08/08/23 08:31 Enoxaparin 40 Mg/0.4 Ml Syringe SUBQ 40 mg DAILY SHEILA Administration Guaifenesin 600 mg 08/05/23 21:00 08/08/23 08:31 Guaifenesin 600 Mg Tablet PO 600 mg BID SHEILA Administration Piperacillin Sod/Tazobactam 100 mls @ 200 mls/hr 08/08/23 18:00 08/08/23 18:21 Sod 3.375 gm/ Sodium Chloride IV 200 mls/hr Q6H SEHILA Administration Lorazepam 0.5 mg 08/04/23 17:41 08/07/23 21:39 Lorazepam 2 Mg/Ml Vial IVP 0.5 mg Q6H PRN Administration Anxiety and insomnia Multivitamins 1 tab 08/06/23 17:00 08/08/23 08:31 Multivitamin Tablet PO 1 tab DAILYWM SHEILA Administration Ondansetron HCl 4 mg 08/04/23 11:14 08/08/23 08:44 Ondansetron 4 Mg/2 Ml Vial IVP 4 mg Q6HR PRN Administration Nausea / Vomiting Polyethylene Glycol 17 gm 08/07/23 09:00 08/08/23 03:15 Polyethylene Glycol 3350 17 Gm Packet PO Not Given DAILY SHEILA Sodium Chloride 10 ml 08/04/23 11:14 08/06/23 21:27 Sodium Chloride Flush 0.9% 10 Ml Syringe IVP 10 ml PRN PRN Administration NEEDED PER PROVIDER ORDERS Sodium Chloride 10 ml 08/04/23 17:00 08/08/23 18:21 Sodium Chloride Flush 0.9% 10 Ml Syringe IVP 10 ml 0100,0900,1700 SHEILA Administration Tamsulosin HCl 0.4 mg 08/04/23 21:00 08/08/23 08:31 Tamsulosin 0.4 Mg Capsule PO 0.4 mg DAILY SHEILA Administration - Lab Result Fish Bone Diagrams: 08/11/23 07:11 08/11/23 07:11 - Additional Planning My Orders: My Active Orders 08/07/23 19:43 CULTURE, BLOOD #1 [RM] Stat 08/08/23 CUL, RESPIRATORY [RM] Routine 08/08/23 10:45 RT - Obtain Arterial Specimen [RC] .ONCE 08/08/23 Dinner DIET [Low Sodium Diet] [DIET] 08/08/23 16:38 Echo Transthoracic Complete [ECHO] Routine 08/08/23 16:54 CULTURE, BLOOD #1 [RM] Stat 08/08/23 18:00 Piperacillin/Tazobactam [Zosyn] 3.375 gm Sodium Chloride 0.9% Minibag [Normal Saline 0.9% Minibag] 100 ml IV Q6H 08/08/23 19:00 Vancomycin Inj [Vancomycin] 2 gm Sodium Chloride 0.9% [Normal Saline 0.9%] 500 ml IV ONCE 08/09/23 07:00 Vancomycin Inj [Vancomycin] 1 gm Vancomycin Inj [Vancomycin Hcl] 500 mg Sodium Chloride 0.9% [Normal Saline 0.9%] 500 ml IV Q12H Subjective - Subjective Patient Reports: Shortness of Breath, Other (Can't fall asleep) Objective Vital Signs: Vital Signs - 24 hr 08/07/23 08/08/23 08/08/23 21:50 00:00 00:20 Temperature 37.2 C Heart Rate [ 98 94 Brachial] Respiratory 22 22 Rate Blood Pressure [Left Brachial artery] Blood Pressure 164/87 H [Right Brachial artery] O2 Saturation 90 L 92 If not protocol 6 5 6 : Oxygen Flow, liters/minute 08/08/23 08/08/23 08/08/23 07:30 09:19 09:54 Temperature 37.3 C Heart Rate [ 87 Brachial] Respiratory 30 H 25 H Rate Blood Pressure [Left Brachial artery] Blood Pressure 140/84 H [Right Brachial artery] O2 Saturation 90 L 92 If not protocol 6 6 5 : Oxygen Flow, liters/minute 08/08/23 08/08/23 08/08/23 13:00 13:54 16:19 Temperature 38.2 C H 37.5 C 38.4 C H Heart Rate [ 81 89 Brachial] Respiratory 21 22 Rate Blood Pressure 130/75 [Left Brachial artery] Blood Pressure 127/70 [Right Brachial artery] O2 Saturation 90 L 92 If not protocol 8 8 : Oxygen Flow, liters/minute 08/08/23 17:00 Temperature 38.2 C H Heart Rate [ Brachial] Respiratory Rate Blood Pressure [Left Brachial artery] Blood Pressure [Right Brachial artery] O2 Saturation If not protocol : Oxygen Flow, liters/minute Oxygen O2 Source Oxymizer I&O (Last 24 Hrs): Intake and Output Totals x24h 08/06/23 08/07/23 08/08/23 23:59 23:59 23:59 Intake Total 2617.000 2080 1240 Output Total 6034 3490 8960 Balance -3404.000 -666 -6215 General: Alert, Oriented x3, Mild distress (Wearing suppl O2 for SOB at rest) HEENT: Mucous membr. moist/pink, Other (wearing suppl O2) Neck: Supple Neuro: Alert, Non Focal Cardiovascular: Regular rate, No murmurs Respiratory: Other (Diminished breath sounds, no wheezing or rales) Abdomen: Soft, No tenderness Extremities: No edema, No tenderness/swelling - Results Results: Laboratory Results WBC 8.6 x10^3/uL (4.8-10.8) 08/08/23 16:54 RBC 4.05 10^6/uL (4.70-6.10) L 08/08/23 16:54 Hgb 12.5 g/dL (14.0-18.0) L 08/08/23 16:54 Hct 37.0 % (42.0-52.0) L 08/08/23 16:54 MCV 91.4 fL (80.0-94.0) 08/08/23 16:54 MCH 30.9 pg (27.0-31.0) 08/08/23 16:54 MCHC 33.8 g/dL (32.0-36.0) 08/08/23 16:54 RDW 12.0 % (12.0-15.0) 08/08/23 16:54 Plt Count 291 10^3/uL (130-450) 08/08/23 16:54 MPV 8.5 fL (7.4-11.4) 08/08/23 16:54 Neut # (Auto) 6.8 10^3/uL (1.5-6.6) H 08/08/23 16:54 Lymph # (Auto) 0.4 10^3/uL (1.5-3.5) L 08/08/23 16:54 [facility] # (Auto) 1.1 10^3/uL (0.0-1.0) H 08/08/23 16:54 Eos # (Auto) 0.2 10^3/uL (0.0-0.7) 08/08/23 16:54 Baso # (Auto) 0.0 10^3/uL (0.0-0.1) 08/08/23 16:54 Absolute Nucleated RBC 0.00 x10^3/uL 08/08/23 16:54 Nucleated RBC % 0.0 /100WBC 08/08/23 16:54 D-Dimer 462.4 ng/mL (200.0-255.0) H 08/04/23 03:32 Bld Gas Analysis Time 1119 08/08/23 11:10 Sample Site RIGHT RADIAL 08/08/23 11:10 ABG pH 7.46 (7.35-7.45) H 08/08/23 11:10 ABG pCO2 36 mmHg (34-45) 08/08/23 11:10 ABG pO2 58 mmHg (80-100) L 08/08/23 11:10 ABG HCO3 25.2 mmol/L (22.0-26.0) 08/08/23 11:10 ABG Total CO2 26.3 MMOL/L (21.0-29.0) 08/08/23 11:10 ABG O2 Saturation 90 % (94-98) L 08/08/23 11:10 ABG Base Excess 1.6 mmol/L (-2.0-3.0) 08/08/23 11:10 Fredy Test POSITIVE 08/08/23 11:10 VBG pH 7.469 (7.31-7.41) H 08/04/23 03:32 VBG pCO2 34.5 mmHg (41-51) L 08/04/23 03:32 VBG pO2 55.7 mmHg (25-47) H 08/04/23 03:32 VBG HCO3 24.5 mmol/L (23-28) 08/04/23 03:32 VBG Total CO2 25.5 mmol/L (24-29) 08/04/23 03:32 VBG O2 Saturation 90.0 % (60-80) H 08/04/23 03:32 VBG Base Excess 1.3 mmol/L (-2 - +2) 08/04/23 03:32 O2 Delivery Device NASAL CANNULA 08/08/23 11:10 O2 Liters/Min 5.00 LPM 08/08/23 11:10 Sodium 134 mmol/L (135-145) L 08/08/23 16:54 Potassium 3.6 mmol/L (3.5-4.5) 08/08/23 16:54 Chloride 98 mmol/L (101-111) L 08/08/23 16:54 Carbon Dioxide 28 mmol/L (21-32) 08/08/23 16:54 Anion Gap 8.0 (6-13) 08/08/23 16:54 BUN 9 mg/dL (6-20) 08/08/23 16:54 Creatinine 0.7 mg/dL (0.6-1.3) 08/08/23 16:54 Estimated GFR (MDRD) 113 (>89) 08/08/23 16:54 Glucose 115 mg/dL (74-104) H 08/08/23 16:54 Lactic Acid 1.0 mmol/L (0.5-2.2) 08/08/23 16:54 Calcium 8.3 mg/dL (8.5-10.3) L 08/08/23 16:54 Total Bilirubin 0.4 mg/dL (0.2-1.0) 08/08/23 16:54 Direct Bilirubin 0.12 mg/dL (0.03-0.18) 08/08/23 16:54 AST 16 IU/L (10-42) 08/08/23 16:54 ALT 12 IU/L (10-60) 08/08/23 16:54 Alkaline Phosphatase 46 IU/L (42-121) 08/08/23 16:54 Troponin I High Sens 5.7 ng/L (2.3-19.7) 08/08/23 14:05 B-Natriuretic Peptide 37 pg/mL (5-100) 08/08/23 11:09 Total Protein 6.8 g/dL (6.4-8.9) 08/08/23 16:54 Albumin 3.0 g/dL (3.2-5.5) L 08/08/23 16:54 Globulin 3.8 g/dL (2.1-4.2) 08/08/23 16:54 Albumin/Globulin Ratio 0.9 (1.0-2.2) L 08/04/23 03:32 Lipase 13 U/L (11-82) 08/04/23 03:32 Urine Color YELLOW 08/08/23 18:09 Urine Clarity CLEAR (CLEAR) 08/08/23 18:09 Urine pH 6.0 PH (5.0-7.5) 08/08/23 18:09 Ur Specific [place] <=1.005 (1.002-1.030) 08/08/23 18:09 Urine Protein NEGATIVE mg/dL (NEGATIVE) 08/08/23 18:09 Urine Glucose (UA) NEGATIVE mg/dL (NEGATIVE) 08/08/23 18:09 Urine Ketones NEGATIVE mg/dL (NEGATIVE) 08/08/23 18:09 Urine Occult Blood SMALL (NEGATIVE) H 08/08/23 18:09 Urine Nitrite NEGATIVE (NEGATIVE) 08/08/23 18:09 Urine Bilirubin NEGATIVE (NEGATIVE) 08/08/23 18:09 Urine Urobilinogen 0.2 (NORMAL) E.U./dL (NORMAL) 08/08/23 18:09 Ur Leukocyte Esterase NEGATIVE (NEGATIVE) 08/08/23 18:09 Urine RBC 6-10 /HPF (0-5) H 08/08/23 18:09 Urine WBC 0-3 /HPF (0-3) 08/08/23 18:09 Ur Squamous Epith Cells NONE SEEN (<= Few) 08/08/23 18:09 Urine Bacteria None Seen /HPF (None Seen) 08/08/23 18:09 Ur Microscopic Review INDICATED 08/08/23 18:09 Urine Culture Comments NOT INDICATED 08/08/23 18:09 Nasal Adenovirus (PCR) NOT DETECTED 08/08/23 13:03 Nasal B. parapertussis DNA (PCR) NOT DETECTED 08/08/23 13:03 Nasal Coronavir 229E PCR NOT DETECTED 08/08/23 13:03 Nasal Coronavir HKU1 PCR NOT DETECTED 08/08/23 13:03 Nasal Coronavir NL63 PCR NOT DETECTED 08/08/23 13:03 Nasal Coronavir OC43 PCR NOT DETECTED 08/08/23 13:03 Nasal Enterovir/Rhinovir PCR NOT DETECTED 08/08/23 13:03 Nasal Influenza B PCR NOT DETECTED 08/08/23 13:03 Nasal Influenza A PCR NOT DETECTED 08/08/23 13:03 Nasal Parainfluen 1 PCR NOT DETECTED 08/08/23 13:03 Nasal Parainfluen 2 PCR NOT DETECTED 08/08/23 13:03 Nasal Parainfluen 3 PCR NOT DETECTED 08/08/23 13:03 Nasal Parainfluen 4 PCR NOT DETECTED 08/08/23 13:03 Nasal RSV (PCR) NOT DETECTED 08/08/23 13:03 Nasal B.pertussis DNA PCR NOT DETECTED 08/08/23 13:03 Nasal C.pneumoniae (PCR) NOT DETECTED 08/08/23 13:03 Nando Human Metapneumo PCR NOT DETECTED 08/08/23 13:03 Nasal M.pneumoniae (PCR) NOT DETECTED 08/08/23 13:03 Nasal SARS-CoV-2 (PCR) NOT DETECTED 08/08/23 13:03
--- NOTE | 2023-08-08 19:31 | CT Report ---
PROCEDURE: Abdomen/Pelvis WO INDICATIONS: Hydronephrosis seen on CT chest TECHNIQUE: A CT scan of the abdomen and pelvis was performed without the use of intravenous contrast. Images we re recorded and evaluated at appropriate window settings. Reformats: coronal and sagittal. For radiat ion dose reduction, the following was used: automated exposure control, adjustment of mA and/or kV ac cording to patient size. COMPARISON: Same day chest CT. CT 04/25/2023, 05/22/2023 FINDINGS: Image quality: Diagnostic. Lower chest: Please see same day dedicated chest CT. Liver: No contour-deforming mass. Gallbladder and biliary tree: No radiopaque stones or wall thickening. No biliary dilation. Spleen: No splenomegaly. Pancreas: No pancreatic ductal dilation. Adrenals: No adrenal nodule. Kidneys and ureters: Moderate to severe right-sided hydronephroureter, progressed from comparison ult rasounds. Obstructing stone cannot be excluded due to the presence of contrast within the right urete r. Stomach, bowel and peritoneum: No bowel distension. No pathologic free fluid. Lymph nodes: Enlarged retroperitoneal lymph nodes, presumably reactive. Vessels: No infrarenal aortic aneurysm. PELVIS Reproductive organs: Unremarkable. Bladder: Diffuse bladder wall thickening, with Sprague catheter in place. The posterior bladder wall i s markedly thinner than the remaining wall. Perivesicular fat stranding is present. Pelvic lymph nodes: No pelvic adenopathy by size criteria. Bones: No aggressive osseous abnormality. Other: No significant ventral or inguinal hernia. IMPRESSION: Moderate to severe right-sided hydronephroureter, progressed from comparison ultrasound. Obstructing process cannot be excluded due to the presence of contrast within the right ureter. Irregular bladder wall thickening, and perivesicular fat stranding suggestive of cystitis. Underlying mass cannot be excluded based on this appearance. The posterior bladder wall is markedly thinner than the remaining wall. Findings could represent a fl uid-filled diverticulum. Please see dedicated chest CT for further discussion. Reviewed by: Adilson Heath MD on 08/08/2023 7:29 PM PST Approved by: Adilson Heath MD on 08/08/2023 7:29 PM PST Station ID: [id number]
[2023-08-08] MEDS: VANCOMYCIN INJ 2 GM in SODIUM CHLORIDE 0.9% 500 ML IV ONE (19:39)
[2023-08-09] MEDS: VANCOMYCIN INJ 1 GM, VANCOMYCIN INJ 500 MG in SODIUM CHLORIDE 0.9% 500 ML IV SCH (06:34)
[2023-08-09 09:54] LABS: BASOPHILS # (AUTO) 0.1 10^3/uL (0.0-0.1); BASOPHILS % (AUTO) 0.6 %; EOSINOPHILS # (AUTO) 0.2 10^3/uL (0.0-0.7); EOSINOPHILS % (AUTO) 2.9 %; HCT - HEMATOCRIT 37.7 % (42.0-52.0); HGB - HEMOGLOBIN 12.5 g/dL (14.0-18.0); LYMPHOCYTES # (AUTO) 0.4 10^3/uL (1.5-3.5); LYMPHOCYTES % (AUTO) 4.5 %; MEAN CORPUSCULAR HEMOGLOBIN 30.9 pg (27.0-31.0); MEAN CORPUSCULAR HGB CONC 33.2 g/dL (32.0-36.0); MEAN CORPUSCULAR VOLUME 93.1 fL (80.0-94.0); MEAN PLATELET VOLUME 8.5 fL (7.4-11.4); MONOCYTES # (AUTO) 0.7 10^3/uL (0.0-1.0); MONOCYTES % (AUTO) 8.2 %; NEUTROPHILS # (AUTO) 6.7 10^3/uL (1.5-6.6); NEUTROPHILS % (AUTO) 83.4 %; PLT - PLATELET COUNT 288 10^3/uL (130-450); RED BLOOD COUNT 4.05 10^6/uL (4.70-6.10); RED CELL DISTRIBUTION WIDTH 12.3 % (12.0-15.0)
[2023-08-09 10:13] LABS: CALCIUM 8.5 mg/dL (8.5-10.3); CREATININE 0.9 mg/dL (0.6-1.3); POTASSIUM 3.7 mmol/L (3.5-4.5)
[2023-08-09] MEDS: oxyCODONE 5 MG TABLET PO PRN (11:35)
[2023-08-09] MEDS: MORPHINE 2 MG/ML CARPUJECT IVP PRN (13:53)
--- NOTE | 2023-08-09 16:09 | PHARMACY PROGRESS NOTE ---
- Therapy Status Vancomycin regimen day #: 2 Therapy status: Awaiting steady state Basis for treatment: Empirical Treatment indication: FEVER OF UNKNOWN SOURCE Trough goal: AUC 400-600 Concurrent antibiotics: ZOSYN - SHERIDAN Risk Risk level for Acute Kidney Injury: High Acute Kidney Injury risk factors: Other nephrotoxic agents, Piperacillin/Tozobactam, Goal trough >15, Admission to ICU - Monitoring and Recommendation Clinical response to treatment: Lab Results 08/04/23 03:32 BUN 12 Creatinine 0.8 Estimated GFR (MDRD) 97 Cultures 08/04/23 07:16 Blood - Right Arm Blood Culture - Final NO GROWTH AFTER 5 DAYS 08/04/23 07:10 Blood - Left Arm Blood Culture - Final NO GROWTH AFTER 5 DAYS
[2023-08-09] MEDS: FUROSEMIDE 20 MG/2 ML VIAL IVP STA (16:36)
--- NOTE | 2023-08-09 17:05 | PROVIDER PROGRESS NOTE ---
Assessment/Plan - Problem List (1) Acute respiratory failure with hypoxia Assessment/Plan: Patient's O2 needs worsened even more overnight needing 15 L/min heated high flow oxygen, down to 12 L/min today His CT chest done yesterday showed no PE, bilateral pleural effusions bigger than the admission CAT scan showed and multiple pulmonary nodules. I updated him and the with these results today. The was able to show me the report from [facility] CT scan done 07/13/2023 which showed "interstitial changes and pulmonary lung nodules then, consistent with atypical infection or interstitial lung disease". I repeated his respiratory PCR which came back entirely neg. 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 Continue with daily IV Lasix to drain the pleural effusions Continue with IV morphine as needed dyspnea Continue supplemental O2 Consult with the diver assistant will be worked on, possibly he needs empiric IV steroids I updated the patient and his at bedside, regarding the plan (2) Pleural effusion Assessment/Plan: He has increasing bilateral pleural effusions, probably from receiving IV fluids and meds while here. He had small pleural effusions at admission also Plan: Continue daily IV Lasix Will obtain lateral decub chest x-ray and consider thoracentesis under ultrasound guidance (3) Fever Assessment/Plan: Yesterday afternoon he had a fever. Bld cx were drawn. This afternoon he spiked a fever of 38.2C again. The patient has just finished empiric treatment with IV ceftriaxone and IV Zithromax for pneumonia. His chest x-ray did not show worsening of pneumonia. His CTA chest confirmed unchanged consolidation, pleural effusions present and l carmencita nodules are present. The CTA chest ruled out a PE & mentioned that he has right-sided hydronephrosis. Lactic acid level was checked and it was normal. WBC has been 8-8.6 throughout his hospital stay (all labs were reviewed) Plan: Cont broadened antibx coverage using IV Zosyn and IV Vanco, for poss aspration and for MRSA coverage Await sputum, urine culture and blood culture (4) CAP (community acquired pneumonia) Assessment/Plan: Patient had a non productive cough for weeks with progressive shortness of breath exacerbated by exertion. CT angio was negative PE but did show small right sided pleural effusion and trace left sided pleural effusion with associated overlying atelectasis. Minimal scattered foci of poorly defined opacity can be seen throughout the lungs. This was consistent with his last CT of the chest at the end of Jun, that showed ground glass opacities He was started on IV Rocephin + Azithromycin and has completed his course of tx today Because of fever the past 2 days, CT a chest was done that did not show worsening pneumonia and nodules were described Plan: Cont broadened antibx Cont supplemental oxygen with target sat 92% or above Cont Mucinex scheduled Cont IS Consider reaching out to diver assistant and infectious disease for their input (5) History of bladder cancer The CT scan showed right-sided hydroureter so I ordered a urinalysis and ordered a urology consult Appreciate Dr. Robison's input and he was able to obtain old history that this is stable right-sided hydroureter and chronic Sprague and it was not felt to be the source of his fevers (6) Chronic indwelling Sprague Plan: Continue standard Sprague care. Per Dr. Robison, monthly [place] changes are needed (7) Hydronephrosis of R kidney The CT scan showed right-sided hydroureter so I ordered a urinalysis and ordered a urology consult We learned that the patient has history of bladder cancer and has had this right-sided hydronephrosis for years so it is chronic and not a new problem (8) Anxiety Conclusion/Plan: Patient is anxious. He expressed fear of going to sleep and never waking up again due to his obstructive sleep apnea plus PNA. This has caused insomnia for the past few weeks. Today he and his both asked that I try something for the Plan: PRN ativan has been given I will give her one-time scheduled Ambien dose tonite (9) Obstructive sleep apnea Conclusion/Plan: Patient has seen a sleep specialist in the past but is having difficulty following up. He is compliant with his CPAP (and his O2 sat was 95% throughout the night). Plan: Continue using his home CPAP device at night while here Will request that RT check if it is clean which, if not clean, may be adding to the respiratory problems - Current Meds Current Meds: Current Medications Generic Name Dose Route Start Last Admin Trade Name Freq PRN Reason Stop Dose Admin Acetaminophen 650 mg 08/04/23 11:14 08/09/23 07:45 Acetaminophen 325 Mg Tablet PO 650 mg Q4HR PRN Administration Pain 1 to 4, or Fever Albuterol 2.5 mg 08/05/23 12:10 08/09/23 08:40 Albuterol Neb 2.5 Mg/3 Ml INH 2.5 mg RTQ4H PRN Administration Wheezing Enoxaparin Sodium 40 mg 08/05/23 09:00 08/09/23 07:39 Enoxaparin 40 Mg/0.4 Ml Syringe SUBQ 40 mg DAILY SHEILA Administration Guaifenesin 600 mg 08/05/23 21:00 08/09/23 07:40 Guaifenesin 600 Mg Tablet PO 600 mg BID SHEILA Administration Piperacillin Sod/Tazobactam 100 mls @ 200 mls/hr 08/08/23 18:00 08/09/23 16:54 Sod 3.375 gm/ Sodium Chloride IV 200 mls/hr Q6H SHEILA Administration Lorazepam 0.5 mg 08/04/23 17:41 08/09/23 11:10 Lorazepam 2 Mg/Ml Vial IVP 0.5 mg Q6H PRN Administration Anxiety and insomnia Morphine Sulfate 1 mg 08/09/23 11:48 08/09/23 13:53 Morphine 2 Mg/Ml Carpuject IVP 1 mg Q8HR PRN Administration Dyspnea Multivitamins 1 tab 08/06/23 17:00 08/09/23 07:39 Multivitamin Tablet PO 1 tab DAILYWM SHEILA Administration Ondansetron HCl 4 mg 08/04/23 11:14 08/08/23 08:44 Ondansetron 4 Mg/2 Ml Vial IVP 4 mg Q6HR PRN Administration Nausea / Vomiting Oxycodone HCl 5 mg 08/04/23 11:14 08/09/23 11:35 Oxycodone 5 Mg Tablet PO 5 mg Q4HR PRN Administration Pain 5 to 7 Polyethylene Glycol 17 gm 08/07/23 09:00 08/09/23 07:39 Polyethylene Glycol 3350 17 Gm Packet PO Not Given DAILY SHEILA Sodium Chloride 10 ml 08/04/23 11:14 08/06/23 21:27 Sodium Chloride Flush 0.9% 10 Ml Syringe IVP 10 ml PRN PRN Administration NEEDED PER PROVIDER ORDERS Sodium Chloride 10 ml 08/04/23 17:00 08/09/23 16:36 Sodium Chloride Flush 0.9% 10 Ml Syringe IVP 10 ml 0100,0900,1700 SHEILA Administration Tamsulosin HCl 0.4 mg 08/04/23 21:00 08/09/23 07:40 Tamsulosin 0.4 Mg Capsule PO 0.4 mg DAILY SHEILA Administration - Lab Result Fish Bone Diagrams: 08/11/23 07:11 08/11/23 07:11 - Additional Planning My Orders: My Active Orders 08/08/23 Dinner DIET [Low Sodium Diet] [DIET] 08/08/23 16:54 CULTURE, BLOOD #1 [RM] Stat 08/08/23 18:00 Piperacillin/Tazobactam [Zosyn] 3.375 gm Sodium Chloride 0.9% Minibag [Normal Saline 0.9% Minibag] 100 ml IV Q6H 08/09/23 08:00 Echo Transthoracic Complete [ECHO] Routine 08/09/23 11:48 Morphine Inj (Carpuject) [Morphine (Carpuject)] 1 mg IVP Q8HR PRN 08/09/23 21:00 Vancomycin Inj [Vancomycin] 1 gm Sodium Chloride 0.9% [Normal Saline 0.9%] 250 ml IV Q12H 08/10/23 05:00 BMP - BASIC METABOLIC PANEL [CHEM] DAILYLAB CBC - COMP BLD CT W/AUTO DIFF [HEME] DAILYLAB 08/10/23 09:00 FUROSEMIDE INJ 20mg VIAL [LASIX INJ 20mg VIAL] 20 mg IVP DAILY Subjective - Subjective Patient Reports: Shortness of Breath, Other (Insomnia. says he is afraid to fall asleep thinking he wont wake up. She is sleeping in his room) Objective Vital Signs: Vital Signs - 24 hr 08/08/23 08/08/23 08/09/23 21:00 22:30 00:29 Temperature 38.1 C H 36.8 C Heart Rate Heart Rate [ 86 82 Brachial] Respiratory 20 18 Rate Blood Pressure 141/84 H [Left Brachial artery] Blood Pressure 127/72 [Right Brachial artery] O2 Saturation 93 94 If not protocol 8 7 5 : Oxygen Flow, liters/minute 08/09/23 08/09/23 08/09/23 04:37 07:26 07:43 Temperature 37.1 C 37.3 C Heart Rate Heart Rate [ 85 82 Brachial] Respiratory 18 30 H 30 H Rate Blood Pressure 150/88 H 135/88 H [Left Brachial artery] Blood Pressure [Right Brachial artery] O2 Saturation 92 94 92 If not protocol 5 8 12 : Oxygen Flow, liters/minute 08/09/23 08/09/23 08/09/23 08:51 11:30 11:34 Temperature Heart Rate 89 Heart Rate [ 80 Brachial] Respiratory 30 H 35 H 20 Rate Blood Pressure 133/79 H [Left Brachial artery] Blood Pressure [Right Brachial artery] O2 Saturation 92 92 If not protocol 12 14 14 : Oxygen Flow, liters/minute 08/09/23 08/09/23 08/09/23 13:55 13:59 17:00 Temperature 37.5 C Heart Rate Heart Rate [ 72 Brachial] Respiratory 25 H 25 H Rate Blood Pressure [Left Brachial artery] Blood Pressure [Right Brachial artery] O2 Saturation 92 92 If not protocol 13 15 50 : Oxygen Flow, liters/minute Oxygen O2 Source Oxymask I&O (Last 24 Hrs): Intake and Output Totals x24h 08/07/23 08/08/23 08/09/23 23:59 23:59 23:59 Intake Total 2080 2290 1160 Output Total 2750 8662 3261 [id number] -[phone] General: Alert, Oriented x3, Other (Appears tired) HEENT: Other (wearing suppl O2. Is disheveled) Neck: Supple Neuro: Alert, Non Focal, Other (Appears tired and weak) Cardiovascular: Regular rate, No murmurs Respiratory: Rhonchi, Other (Diminished breath sounds at bases) Abdomen: Soft, No tenderness Extremities: No edema, No tenderness/swelling - Results Results: Laboratory Results WBC 8.0 x10^3/uL (4.8-10.8) 08/09/23 09:48 RBC 4.05 10^6/uL (4.70-6.10) L 08/09/23 09:48 Hgb 12.5 g/dL (14.0-18.0) L 08/09/23 09:48 Hct 37.7 % (42.0-52.0) L 08/09/23 09:48 MCV 93.1 fL (80.0-94.0) 08/09/23 09:48 MCH 30.9 pg (27.0-31.0) 08/09/23 09:48 MCHC 33.2 g/dL (32.0-36.0) 08/09/23 09:48 RDW 12.3 % (12.0-15.0) 08/09/23 09:48 Plt Count 288 10^3/uL (130-450) 08/09/23 09:48 MPV 8.5 fL (7.4-11.4) 08/09/23 09:48 Neut # (Auto) 6.7 10^3/uL (1.5-6.6) H 08/09/23 09:48 Lymph # (Auto) 0.4 10^3/uL (1.5-3.5) L 08/09/23 09:48 [place] # (Auto) 0.7 10^3/uL (0.0-1.0) 08/09/23 09:48 Eos # (Auto) 0.2 10^3/uL (0.0-0.7) 08/09/23 09:48 Baso # (Auto) 0.1 10^3/uL (0.0-0.1) 08/09/23 09:48 Absolute Nucleated RBC 0.00 x10^3/uL 08/09/23 09:48 Nucleated RBC % 0.0 /100WBC 08/09/23 09:48 D-Dimer 462.4 ng/mL (200.0-255.0) H 08/04/23 03:32 Bld Gas Analysis Time 1119 08/08/23 11:10 Sample Site RIGHT RADIAL 08/08/23 11:10 ABG pH 7.46 (7.35-7.45) H 08/08/23 11:10 ABG pCO2 36 mmHg (34-45) 08/08/23 11:10 ABG pO2 58 mmHg (80-100) L 08/08/23 11:10 ABG HCO3 25.2 mmol/L (22.0-26.0) 08/08/23 11:10 ABG Total CO2 26.3 MMOL/L (21.0-29.0) 08/08/23 11:10 ABG O2 Saturation 90 % (94-98) L 08/08/23 11:10 ABG Base Excess 1.6 mmol/L (-2.0-3.0) 08/08/23 11:10 Fredy Test POSITIVE 08/08/23 11:10 VBG pH 7.469 (7.31-7.41) H 08/04/23 03:32 VBG pCO2 34.5 mmHg (41-51) L 08/04/23 03:32 VBG pO2 55.7 mmHg (25-47) H 08/04/23 03:32 VBG HCO3 24.5 mmol/L (23-28) 08/04/23 03:32 VBG Total CO2 25.5 mmol/L (24-29) 08/04/23 03:32 VBG O2 Saturation 90.0 % (60-80) H 08/04/23 03:32 VBG Base Excess 1.3 mmol/L (-2 - +2) 08/04/23 03:32 O2 Delivery Device NASAL CANNULA 08/08/23 11:10 O2 Liters/Min 5.00 LPM 08/08/23 11:10 Sodium 135 mmol/L (135-145) 08/09/23 09:48 Potassium 3.7 mmol/L (3.5-4.5) 08/09/23 09:48 Chloride 99 mmol/L (101-111) L 08/09/23 09:48 Carbon Dioxide 28 mmol/L (21-32) 08/09/23 09:48 Anion Gap 8.0 (6-13) 08/09/23 09:48 BUN 9 mg/dL (6-20) 08/09/23 09:48 Creatinine 0.9 mg/dL (0.6-1.3) 08/09/23 09:48 Estimated GFR (MDRD) 84 (>89) L 08/09/23 09:48 Glucose 178 mg/dL (74-104) H 08/09/23 09:48 Lactic Acid 1.0 mmol/L (0.5-2.2) 08/08/23 16:54 Calcium 8.5 mg/dL (8.5-10.3) 08/09/23 09:48 Total Bilirubin 0.4 mg/dL (0.2-1.0) 08/08/23 16:54 Direct Bilirubin 0.12 mg/dL (0.03-0.18) 08/08/23 16:54 AST 16 IU/L (10-42) 08/08/23 16:54 ALT 12 IU/L (10-60) 08/08/23 16:54 Alkaline Phosphatase 46 IU/L (42-121) 08/08/23 16:54 Troponin I High Sens 5.7 ng/L (2.3-19.7) 08/08/23 14:05 B-Natriuretic Peptide 37 pg/mL (5-100) 08/08/23 11:09 Total Protein 6.8 g/dL (6.4-8.9) 08/08/23 16:54 Albumin 3.0 g/dL (3.2-5.5) L 08/08/23 16:54 Globulin 3.8 g/dL (2.1-4.2) 08/08/23 16:54 Albumin/Globulin Ratio 0.9 (1.0-2.2) L 08/04/23 03:32 Lipase 13 U/L (11-82) 08/04/23 03:32 Urine Color YELLOW 08/08/23 18:09 Urine Clarity CLEAR (CLEAR) 08/08/23 18:09 Urine pH 6.0 PH (5.0-7.5) 08/08/23 18:09 Ur Specific [place] <=1.005 (1.002-1.030) 08/08/23 18:09 Urine Protein NEGATIVE mg/dL (NEGATIVE) 08/08/23 18:09 Urine Glucose (UA) NEGATIVE mg/dL (NEGATIVE) 08/08/23 18:09 Urine Ketones NEGATIVE mg/dL (NEGATIVE) 08/08/23 18:09 Urine Occult Blood SMALL (NEGATIVE) H 08/08/23 18:09 Urine Nitrite NEGATIVE (NEGATIVE) 08/08/23 18:09 Urine Bilirubin NEGATIVE (NEGATIVE) 08/08/23 18:09 Urine Urobilinogen 0.2 (NORMAL) E.U./dL (NORMAL) 08/08/23 18:09 Ur Leukocyte Esterase NEGATIVE (NEGATIVE) 08/08/23 18:09 Urine RBC 6-10 /HPF (0-5) H 08/08/23 18:09 Urine WBC 0-3 /HPF (0-3) 08/08/23 18:09 Ur Squamous Epith Cells NONE SEEN (<= Few) 08/08/23 18:09 Urine Bacteria None Seen /HPF (None Seen) 08/08/23 18:09 Ur Microscopic Review INDICATED 08/08/23 18:09 Urine Culture Comments NOT INDICATED 08/08/23 18:09 Nasal Adenovirus (PCR) NOT DETECTED 08/08/23 13:03 Nasal B. parapertussis DNA (PCR) NOT DETECTED 08/08/23 13:03 Nasal Coronavir 229E PCR NOT DETECTED 08/08/23 13:03 Nasal Coronavir HKU1 PCR NOT DETECTED 08/08/23 13:03 Nasal Coronavir NL63 PCR NOT DETECTED 08/08/23 13:03 Nasal Coronavir OC43 PCR NOT DETECTED 08/08/23 13:03 Nasal Enterovir/Rhinovir PCR NOT DETECTED 08/08/23 13:03 Nasal Influenza B PCR NOT DETECTED 08/08/23 13:03 Nasal Influenza A PCR NOT DETECTED 08/08/23 13:03 Nasal Parainfluen 1 PCR NOT DETECTED 08/08/23 13:03 Nasal Parainfluen 2 PCR NOT DETECTED 08/08/23 13:03 Nasal Parainfluen 3 PCR NOT DETECTED 08/08/23 13:03 Nasal Parainfluen 4 PCR NOT DETECTED 08/08/23 13:03 Nasal RSV (PCR) NOT DETECTED 08/08/23 13:03 Nasal B.pertussis DNA PCR NOT DETECTED 08/08/23 13:03 Nasal C.pneumoniae (PCR) NOT DETECTED 08/08/23 13:03 [place] Human Metapneumo PCR NOT DETECTED 08/08/23 13:03 Nasal M.pneumoniae (PCR) NOT DETECTED 08/08/23 13:03 Nasal SARS-CoV-2 (PCR) NOT DETECTED 08/08/23 13:03
--- NOTE | 2023-08-09 17:52 | CONSULTATION NOTE ---
Referring Provider Name of Referring Provider:: Dr Awan Consult Date: 08/09/23 Chief Complaint - Chief Complaint Chief Complaint: right hydronephrosis, history of bladder cancer, urinary retention History of Present Illness - Admitted From Admitted From:: ER - History Obtained From Records Reviewed: EMR History obtained from: Patient Exam Limitations: none - History of Present Illness HPI Comment/Other: Yao is a 68-year-old male with a significant urological history. We do not have his direct records to review but the patient is a good historian. He states he was diagnosed last year with high-grade bladder cancer which was removed via TURBT. He states he knows that his right-sided kidney has had possible blockage and his prior urologist had difficulty finding the ureteral orifice. However, imaging has shown no evidence of cancer obstructing his kidney in the past. He was treated with a 6-week course of BCG also. He states his last cystoscopy was a few months ago and was negative for pathology. He also has a history of an atonic/hypotonic bladder and has required a chronic catheter for the last few months. He is now admitted for presumed pneumonia. He denies right flank pain. His creatinine is 0.9 which is his baseline. Urinalysis was performed and negative for concern for infection. He had a recent CT scan with IV contrast which showed moderate right hydronephrosis and severe hydroureter to the level of the bladder. His abdominal scan was performed after a contrast load given for a lung scan and so there was a delayed phase seen. The contrast appears to drain symmetrically. History - Past Medical History Cardiovascular: reports: Hypertension Respiratory: reports: None Neuro: reports: None Endocrine/Autoimmune: reports: None GI: reports: None : reports: Other (mason cather) HEENT: reports: None Psych: reports: Anxiety, Panic attacks Musculoskeletal: reports: None Derm: reports: None MRSA Hx?: No Other Past Medical History: Bladder ca - Past Surgical History Ortho: reports: ACL reconstruction - Family & Social History Family History: Mother: Alive and Well, Father: , Diabetes, Type 2, [place], Sister: Diabetes, Type 2, Brother: Diabetes, Type 2 Living arrangement: At home Living Situation: With spouse/s.o. - Substance History Use: Uses substance without health or social issues: NONE Abuse: Recurrent use of substance despite neg consequences: NONE Dependence: Experiences withdrawal or developed tolerances: NONE - POLST Patient has POLST: No POLST Status: Full Code Meds/Allgy - Home Medications Home Medications: Ambulatory Orders Medication Instructions Recorded Confirmed LORazepam [Ativan] 0.5 mg PO HS PRN 10 Days #10 tablet 08/04/23 Tamsulosin [Flomax] 0.4 mg PO DAILY 08/04/23 08/04/23 B Complx/C/Folic/Zinc/Cup Basurto/E 1 each PO DAILY 08/06/23 08/06/23 [[id number] Tab] Multivitamin [Theragran] 1 each PO DAILY 08/06/23 08/06/23 - Allergies Allergies/Adverse Reactions: Allergies Allergy/AdvReac Type Severity Reaction Status Date / Time No Known Drug Allergies Allergy Verified 08/04/23 03:02 Exam - Vital Signs Reviewed Vital Signs: Yes Vital Signs: Vital Signs x48h Temp Pulse Resp BP BP Pulse Ox O2 Flow Rate 08/09/23 17:35 38.1 C H 83 22 114/72 94 35 08/09/23 17:00 50 08/09/23 13:59 25 H 92 15 08/09/23 13:55 37.5 C 72 25 H 92 13 08/09/23 11:34 80 20 133/79 H 92 14 08/09/23 11:30 35 H 92 14 - Physical Exam General Appearance: positive: Other (lying in bed, coughing, O2 mask in place) Abdomen: positive: Other (no cvat) Conclusion and Plan - Lab Results Microbiology Results 08/04/23 11:39 Blood - Left Iv Start Blood Culture - Final NO GROWTH AFTER 5 DAYS 08/04/23 07:16 Blood - Right Arm Blood Culture - Final NO GROWTH AFTER 5 DAYS 08/04/23 07:10 Blood - Left Arm Blood Culture - Final NO GROWTH AFTER 5 DAYS 08/08/23 13:07 Sputum Gram Stain - Final Laboratory Results 08/09/23 09:48: Sodium 135, Potassium 3.7, Chloride 99 L, Carbon Dioxide 28, Anion Gap 8.0, BUN 9, Creatinine 0.9, Estimated GFR (MDRD) 84 L, Glucose 178 H, Calcium 8.5 08/09/23 09:48: WBC 8.0, RBC 4.05 L, Hgb 12.5 L, Hct 37.7 L, MCV 93.1, MCH 30.9, MCHC 33.2, RDW 12.3, Plt Count 288, MPV 8.5, Neut # (Auto) 6.7 H, Lymph # (Auto) 0.4 L, [place] # (Auto) 0.7, Eos # (Auto) 0.2, Baso # (Auto) 0.1, Absolute Nucleated RBC 0.00, Nucleated RBC % 0.0 08/08/23 18:09: Urine Color YELLOW, Urine Clarity CLEAR, Urine pH 6.0, Ur Specif ic [place] <=1.005, Urine Protein NEGATIVE, Urine Glucose (UA) NEGATIVE, Urine Ketones NEGATIVE, Urine Occult Blood SMALL H, Urine Nitrite NEGATIVE, Urine Bilirubin NEGATIVE, Urine Urobilinogen 0.2 (NORMAL), Ur Leukocyte Esterase NEGATIVE, Urine RBC 6-10 H, Urine WBC 0-3, Ur Squamous Epith Cells NONE SEEN, Urine Bacteria None Seen, Ur Microscopic Review INDICATED, Urine Culture Comments NOT INDICATED 08/08/23 16:54: Lactic Acid 1.0 08/08/23 16:54: Sodium 134 L, Potassium 3.6, Chloride 98 L, Carbon Dioxide 28, Anion Gap 8.0, BUN 9, Creatinine 0.7, Estimated GFR (MDRD) 113, Glucose 115 H, Calcium 8.3 L, Total Bilirubin 0.4, Direct Bilirubin 0.12, AST 16, ALT 12, Alkaline Phosphatase 46, Total Protein 6.8, Albumin 3.0 L, Globulin 3.8 08/08/23 16:54: WBC 8.6, RBC 4.05 L, Hgb 12.5 L, Hct 37.0 L, MCV 91.4, MCH 30.9, MCHC 33.8, RDW 12.0, Plt Count 291, MPV 8.5, Neut # (Auto) 6.8 H, Lymph # (Auto) 0.4 L, [place] # (Auto) 1.1 H, Eos # (Auto) 0.2, Baso # (Auto) 0.0, Absolute Nucleated RBC 0.00, Nucleated RBC % 0.0 08/08/23 14:05: Troponin I High Sens 5.7 08/08/23 13:03: Nasal Adenovirus (PCR) NOT DETECTED, Nasal B. parapertussis DNA (PCR) NOT DETECTED, Nasal Coronavir 229E PCR NOT DETECTED, Nasal Coronavir HKU1 PCR NOT DETECTED, Nasal Coronavir NL63 PCR NOT DETECTED, Nasal Coronavir OC43 PCR NOT DETECTED, Nasal Enterovir/Rhinovir PCR NOT DETECTED, Nasal Influenza B PCR NOT DETECTED, Nasal Influenza A PCR NOT DETECTED, Nasal Parainfluen 1 PCR NOT DETECTED, Nasal Parainfluen 2 PCR NOT DETECTED, Nasal Parainfluen 3 PCR NOT DETECTED, Nasal Parainfluen 4 PCR NOT DETECTED, Nasal RSV (PCR) NOT DETECTED, Nasal B.pertussis DNA PCR NOT DETECTED, Nasal C.pneumoniae (PCR) NOT DETECTED, [place] Human Metapneumo PCR NOT DETECTED, Nasal M.pneumoniae (PCR) NOT DETECTED, Nasal SARS-CoV-2 (PCR) NOT DETECTED 08/08/23 11:10: Bld Gas Analysis Time 1119, Sample Site RIGHT RADIAL, ABG pH 7.46 H, ABG pCO2 36, ABG pO2 58 L, ABG HCO3 25.2, ABG Total CO2 26.3, ABG O2 Saturation 90 L, ABG Base Excess 1.6, Fredy Test POSITIVE, O2 Delivery Device NASAL CANNULA, O2 Liters/Min 5.00 08/08/23 11:09: B-Natriuretic Peptide 37 08/08/23 11:09: Troponin I High Sens 4.9 - Diagnostic Imaging Results Diagnostic Imaging Results: positive: Read independently - Diagnosis Diagnosis: Right hydroureteronephrosis. History of bladder cancer. Urinary retention - Consultation Note Consultation Note: 68-year-old male with history of high-grade bladder cancer status post TURBT, BCG induction, no tumors as of April 2023 and history of chronic urinary retention likely from atonic bladder now presents with likely lung pathology including pneumonia versus pleural effusion. Incidental found right hyd roureteronephrosis in the setting of normal renal function, asymptomatic, urinalysis not concerning for infection - Plan Plan: I reviewed his imaging independently. He CT scan appears relatively benign. He does have an atypical appearing bladder which I likely suspect is evidence of a long-term obstructed bladder which is now atonic. Certainly I would prefer to perform a cystoscopy myself to reevaluate his anatomy but I do not think this is urgent. His hydronephrosis is mild to moderate on the right. I think it is very similar to his previous ultrasounds. He does have fairly severe hydroureter on the right which was not picked up on his ultrasounds as this does not assess his ureters normally. Similarly, he has no symptoms, his renal function is normal. I see no reason for any acute intervention. Certainly I think that he should have a further evaluation with his primary urology doctors at [facility]. I have offered for him to follow-up with me if he would like. I am happy to take care of his BCG maintenance course and to further evaluate and manage any sort of renal dysfunction on the right. However I think these issues are not leading to his current admitted dysfunction. He can have his catheter changed monthly. Follow-up with me as needed. Patient states understanding and consents to the above plan
[2023-08-09] MEDS: ZOLPIDEM 5 MG TABLET PO ONE (20:11)
[2023-08-09] MEDS: VANCOMYCIN INJ 1 GM in SODIUM CHLORIDE 0.9% 250 ML IV SCH (22:20)
[2023-08-10] MEDS: LORazepam 2 MG/ML VIAL IVP PRN (00:07)
[2023-08-10 05:47] LABS: BASOPHILS % (AUTO) 0.4 %; EOSINOPHILS # (AUTO) 0.3 10^3/uL (0.0-0.7); EOSINOPHILS % (AUTO) 2.7 %; HGB - HEMOGLOBIN 12.8 g/dL (14.0-18.0); LYMPHOCYTES # (AUTO) 0.4 10^3/uL (1.5-3.5); LYMPHOCYTES % (AUTO) 4.3 %; MEAN CORPUSCULAR HEMOGLOBIN 30.3 pg (27.0-31.0); MEAN CORPUSCULAR HGB CONC 32.8 g/dL (32.0-36.0); MEAN CORPUSCULAR VOLUME 92.4 fL (80.0-94.0); MEAN PLATELET VOLUME 8.2 fL (7.4-11.4); MONOCYTES # (AUTO) 1.1 10^3/uL (0.0-1.0); MONOCYTES % (AUTO) 11.7 %; NEUTROPHILS # (AUTO) 7.5 10^3/uL (1.5-6.6); NEUTROPHILS % (AUTO) 80.6 %; PLT - PLATELET COUNT 291 10^3/uL (130-450); RED BLOOD COUNT 4.22 10^6/uL (4.70-6.10); RED CELL DISTRIBUTION WIDTH 12.1 % (12.0-15.0); WHITE BLOOD COUNT 9.3 x10^3/uL (4.8-10.8)
[2023-08-10 06:10] LABS: CALCIUM 8.8 mg/dL (8.5-10.3); CREATININE 0.9 mg/dL (0.6-1.3); POTASSIUM 3.7 mmol/L (3.5-4.5)
[2023-08-10] MEDS: FUROSEMIDE 20 MG/2 ML VIAL IVP SCH (10:10)
--- NOTE | 2023-08-10 15:27 | Ultrasound Report ---
PROCEDURE: Chest INDICATIONS: Diagnostic tap TECHNIQUE: Real-time scanning was performed, and a suitable site was marked by the medical device sales consultant for thoracentesis to be performed by the referring clinician. COMPARISON: None. Findings and impression: Only a small amount of fluid is seen underlying the right back, adjacent to the right hemidiaphragm. Consider reassessment at a later date to see if there is enough fluid for thoracentesis. Reviewed by: Easton Aquino MD on 08/10/2023 3:26 PM PST Approved by: Easton Aquino MD on 08/10/2023 3:26 PM PST Station ID: [id number]
--- NOTE | 2023-08-10 18:40 | PROVIDER PROGRESS NOTE ---
Assessment/Plan - Problem List (1) Acute respiratory failure with hypoxia Assessment/Plan: Patient's O2 needs worsened even more overnight needing 15 L/min heated high flow oxygen, down to 12 L/min today His CT chest done yesterday showed no PE, bilateral pleural effusions bigger than the admission CAT scan showed and multiple pulmonary nodules. I updated him and the with these results today. The was able to show me the report from [facility] CT scan done 07/13/2023 which showed "interstitial changes and pulmonary lung nodules then, consistent with atypical infection or interstitial lung disease". I repeated his respiratory PCR which came back entirely neg. 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 Continue with daily IV Lasix to drain the pleural effusions Continue with IV morphine as needed dyspnea Continue supplemental O2 Consult with the weather reporter will be worked on, possibly he needs empiric IV steroids I updated the patient and his at bedside, regarding the plan (2) Pleural effusion Assessment/Plan: He has increasing bilateral pleural effusions, probably from receiving IV fluids and meds while here. He had small pleural effusions at admission also Plan: Continue daily IV Lasix Will obtain lateral decub chest x-ray and consider thoracentesis under ultrasound guidance>> He does have a layering effusion but it is too small to tap, per phone call from Dr. Aquino, Radiologist (3) Fever Assessment/Plan: With his last fever, bld cx were drawn. This afternoon he spiked a fever of 38.1C again. He has had a fever every day since admission The patient had just finished empiric treatment with IV ceftriaxone and IV Zithromax for pneumonia. His chest x-ray did not show worsening of pneumonia. His CTA chest confirmed unchanged consolidation, pleural effusions present and lung nodules are present. The CTA chest ruled out a PE & mentioned that he has right-sided hydronephrosis. Lactic acid level was checked and it was normal. WBC has been 8-8.6 throughout his hospital stay (all labs were reviewed). He had 2 covid tests, both neg Plan: Cont broadened antibx coverage using IV Zosyn and IV Vanco, for poss aspration and for MRSA coverage Await sputum, urine culture and blood culture (4) CAP (community acquired pneumonia) Assessment/Plan: Patient had a non productive cough for weeks with progressive shortness of breath exacerbated by exertion. CT angio was negative PE but did show small right sided pleural effusion and trace left sided pleural effusion with associated overlying atelectasis. Minimal scattered foci of poorly defined opacity can be seen throughout the lungs. This was consistent with his last CT of the chest at the end of Jun, that showed ground glass opacities He was starte d on IV Rocephin + Azithromycin and has completed his course of tx Because of fever the past 2 days, CT a chest was done that did not show worsening pneumonia and nodules were described Plan: Cont broadened antibx Cont supplemental oxygen with target sat 92% or above Cont Mucinex scheduled Cont IS Consider reaching out to weather reporter and infectious disease for their input (5) History of bladder cancer The CT scan showed right-sided hydroureter so I ordered a urinalysis and ordered a urology consult Appreciate Dr. Robison's input and he was able to obtain old history that this is stable right-sided hydroureter and chronic Sprague and it was not felt to be the source of his fevers (6) Chronic indwelling Sprague Plan: Continue standard Sprague care. Per Dr. Robison, monthly Sprague changes are needed (7) Hydronephrosis of R kidney The CT scan showed right-sided hydroureter so I ordered a urinalysis and ordered a urology consult We learned that the patient has history of bladder cancer and has had this right-sided hydronephrosis for years so it is chronic and not a new problem (8) Anxiety Conclusion/Plan: Patient is anxious. He expressed fear of going to sleep and never waking up again due to his obstructive sleep apnea plus PNA. This has caused insomnia for the past few weeks. Today he and his both asked that I try something for the Plan: PRN ativan has been given Also trying Ambien dosing (9) Obstructive sleep apnea Conclusion/Plan: Patient has seen a sleep specialist in the past but is having difficulty following up. He is compliant with his CPAP (and his O2 sat was 95% throughout the night). Plan: Continue using his home CPAP device at night while here Will request that RT check if it is clean which, if not clean, may be adding to the respiratory problems - Current Meds Current Meds: Current Medications Generic Name Dose Route Start Last Admin Trade Name Freq PRN Reason Stop Dose Admin Acetaminophen 650 mg 08/04/23 11:14 08/09/23 07:45 Acetaminophen 325 Mg Tablet PO 650 mg Q4HR PRN Administration Pain 1 to 4, or Fever Albuterol 2.5 mg 08/05/23 12:10 08/09/23 08:40 Albuterol Neb 2.5 Mg/3 Ml INH 2.5 mg RTQ4H PRN Administration Wheezing Enoxaparin Sodium 40 mg 08/05/23 09:00 08/10/23 10:08 Enoxaparin 40 Mg/0.4 Ml Syringe SUBQ 40 mg DAILY SHEILA Administration Furosemide 20 mg 08/10/23 09:00 08/10/23 10:10 Furosemide 20 Mg/2 Ml Vial IVP 20 mg DAILY SHEILA Administration Guaifenesin 600 mg 08/05/23 21:00 08/10/23 10:08 Guaifenesin 600 Mg Tablet PO 600 mg BID SHEILA Administration Piperacillin Sod/Tazobactam 100 mls @ 200 mls/hr 08/08/23 18:00 08/10/23 16:50 Sod 3.375 gm/ Sodium Chloride IV 200 mls/hr Q6H SHEILA Administration Vancomycin HCl 1 gm/ Sodium 250 mls @ 167 mls/hr 08/09/23 21:00 08/10/23 11:40 Chloride IV Infused Q12H SHEILA Infusion Lorazepam 0.5 mg 08/09/23 18:31 08/10/23 02:06 Lorazepam 2 Mg/Ml Vial IVP 0.5 mg Q2H PRN Administration Anxiety and insomnia Morphine Sulfate 1 mg 08/09/23 11:48 08/10/23 00:31 Morphine 2 Mg/Ml Carpuject IVP 1 mg Q8HR PRN Administration Dyspnea Multivitamins 1 tab 08/06/23 17:00 08/10/23 10:08 Multivitamin Tablet PO 1 tab DAILYWM SHEILA Administration Ondansetron HCl 4 mg 08/04/23 11:14 08/08/23 08:44 Ondansetron 4 Mg/2 Ml Vial IVP 4 mg Q6HR PRN Administration Nausea / Vomiting Oxycodone HCl 5 mg 08/04/23 11:14 08/09/23 11:35 Oxycodone 5 Mg Tablet PO 5 mg Q4HR PRN Administration Pain 5 to 7 Polyethylene Glycol 17 gm 08/07/23 09:00 08/10/23 10:10 Polyethylene Glycol 3350 17 Gm Packet PO Not Given DAILY SHEILA Sodium Chloride 10 ml 08/04/23 11:14 08/06/23 21:27 Sodium Chloride Flush 0.9% 10 Ml Syringe IVP 10 ml PRN PRN Administration NEEDED PER PROVIDER ORDERS Sodium Chloride 10 ml 08/04/23 17:00 08/10/23 16:50 Sodium Chloride Flush 0.9% 10 Ml Syringe IVP 10 ml 0100,0900,1700 SHEILA Administration Tamsulosin HCl 0.4 mg 08/04/23 21:00 08/10/23 10:08 Tamsulosin 0.4 Mg Capsule PO 0.4 mg DAILY SHEILA Administration - Lab Result Fish Bone Diagrams: 08/11/23 07:11 08/11/23 07:11 - Additional Planning My Orders: My Active Orders 08/09/23 18:31 LORazepam INJ [Ativan Inj (Vial)] 0.5 mg IVP Q2H PRN 08/09/23 21:00 Vancomycin Inj [Vancomycin] 1 gm Sodium Chloride 0.9% [Normal Saline 0.9%] 250 ml IV Q12H 08/10/23 09:00 FUROSEMIDE INJ 20mg VIAL [LASIX INJ 20mg VIAL] 20 mg IVP DAILY 08/11/23 05:00 BRIAN COMPREHENSIVE PROFILE [REFLAB] DAILYLAB RHEUMATOID FACTOR DAILYLAB Subjective - Subjective Patient Reports: Fatigue, Shortness of Breath, Other (Is still SOB, feels weak, cannot fall asleep, doses all day, awakens with a startle because he thinks he will not "wake up alive") Objective Vital Signs: Vital Signs - 24 hr 08/09/23 08/09/23 08/10/23 19:51 23:20 03:20 Temperature 37.3 C 37.7 C 37.0 C Heart Rate [ 96 89 80 Brachial] Respiratory 24 24 24 Rate Blood Pressure 147/93 H [Left Brachial artery] Blood Pressure 157/83 H 131/78 H [Right Brachial artery] O2 Saturation 97 94 94 If not protocol 35 50 50 : Oxygen Flow, liters/minute 08/10/23 08/10/23 08/10/23 04:50 07:46 08:15 Temperature 37.5 C Heart Rate [ 91 Brachial] Respiratory 18 Rate Blood Pressure 132/81 H [Left Brachial artery] Blood Pressure [Right Brachial artery] O2 Saturation 94 91 L If not protocol 15 15 15 : Oxygen Flow, liters/minute 08/10/23 08/10/23 11:35 17:00 Temperature 37.5 C 38.1 C H Heart Rate [ 92 104 H Brachial] Respiratory 20 26 H Rate Blood Pressure 161/98 H [Left Brachial artery] Blood Pressure 166/95 H [Right Brachial artery] O2 Saturation 92 90 L If not protocol 11 10 : Oxygen Flow, liters/minute Oxygen O2 Source Oxymizer I&O (Last 24 Hrs): Intake and Output Totals x24h 08/08/23 08/09/23 08/10/23 23:59 23:59 23:59 Intake Total 2290 2110 1340 Output Total 4775 4425 1376 Balance -3209 -0185 -36 General: Alert, Moderate distress (From shortness of breath and from generalized fatigue, cannot fall) HEENT: Mucous membr. moist/pink, Other (Wearing his CPAP with supplemental nasal cannula. Appears disheveled. Appears very tired) Neck: Supple Neuro: Alert, Non Focal, Other (Appears fatigued) Cardiovascular: Regular rate, No murmurs Respiratory: Other (Diminished breath sounds diffusely, no Rales or wheezes) Abdomen: Soft, No tenderness Extremities: No edema, No tenderness/swelling - Results Results: Laboratory Results WBC 9.3 x10^3/uL (4.8-10.8) 08/10/23 05:38 RBC 4.22 10^6/uL (4.70-6.10) L 08/10/23 05:38 Hgb 12.8 g/dL (14.0-18.0) L 08/10/23 05:38 Hct 39.0 % (42.0-52.0) L 08/10/23 05:38 MCV 92.4 fL (80.0-94.0) 08/10/23 05:38 MCH 30.3 pg (27.0-31.0) 08/10/23 05:38 MCHC 32.8 g/dL (32.0-36.0) 08/10/23 05:38 RDW 12.1 % (12.0-15.0) 08/10/23 05:38 Plt Count 291 10^3/uL (130-450) 08/10/23 05:38 MPV 8.2 fL (7.4-11.4) 08/10/23 05:38 Neut # (Auto) 7.5 10^3/uL (1.5-6.6) H 08/10/23 05:38 Lymph # (Auto) 0.4 10^3/uL (1.5-3.5) L 08/10/23 05:38 [place] # (Auto) 1.1 10^3/uL (0.0-1.0) H 08/10/23 05:38 Eos # (Auto) 0.3 10^3/uL (0.0-0.7) 08/10/23 05:38 Baso # (Auto) 0.0 10^3/uL (0.0-0.1) 08/10/23 05:38 Absolute Nucleated RBC 0.00 x10^3/uL 08/10/23 05:38 Nucleated RBC % 0.0 /100WBC 08/10/23 05:38 ESR 75 mm/Hr (0-20) H 08/10/23 05:38 D-Dimer 462.4 ng/mL (200.0-255.0) H 08/04/23 03:32 Bld Gas Analysis Time 1119 08/08/23 11:10 Sample Site RIGHT RADIAL 08/08/23 11:10 ABG pH 7.46 (7.35-7.45) H 08/08/23 11:10 ABG pCO2 36 mmHg (34-45) 08/08/23 11:10 ABG pO2 58 mmHg (80-100) L 08/08/23 11:10 ABG HCO3 25.2 mmol/L (22.0-26.0) 08/08/23 11:10 ABG Total CO2 26.3 MMOL/L (21.0-29.0) 08/08/23 11:10 ABG O2 Saturation 90 % (94-98) L 08/08/23 11:10 ABG Base Excess 1.6 mmol/L (-2.0-3.0) 08/08/23 11:10 Fredy Test POSITIVE 08/08/23 11:10 VBG pH 7.469 (7.31-7.41) H 08/04/23 03:32 VBG pCO2 34.5 mmHg (41-51) L 08/04/23 03:32 VBG pO2 55.7 mmHg (25-47) H 08/04/23 03:32 VBG HCO3 24.5 mmol/L (23-28) 08/04/23 03:32 VBG Total CO2 25.5 mmol/L (24-29) 08/04/23 03:32 VBG O2 Saturation 90.0 % (60-80) H 08/04/23 03:32 VBG Base Excess 1.3 mmol/L (-2 - +2) 08/04/23 03:32 O2 Delivery Device NASAL CANNULA 08/08/23 11:10 O2 Liters/Min 5.00 LPM 08/08/23 11:10 Sodium 135 mmol/L (135-145) 08/10/23 05:38 Potassium 3.7 mmol/L (3.5-4.5) 08/10/23 05:38 Chloride 98 mmol/L (101-111) L 08/10/23 05:38 Carbon Dioxide 32 mmol/L (21-32) 08/10/23 05:38 Anion Gap 5.0 (6-13) L 08/10/23 05:38 BUN 8 mg/dL (6-20) 08/10/23 05:38 Creatinine 0.9 mg/dL (0.6-1.3) 08/10/23 05:38 Estimated GFR (MDRD) 84 (>89) L 08/10/23 05:38 Glucose 111 mg/dL (74-104) H 08/10/23 05:38 Lactic Acid 1.0 mmol/L (0.5-2.2) 08/08/23 16:54 Calcium 8.8 mg/dL (8.5-10.3) 08/10/23 05:38 Total Bilirubin 0.4 mg/dL (0.2-1.0) 08/08/23 16:54 Direct Bilirubin 0.12 mg/dL (0.03-0.18) 08/08/23 16:54 AST 16 IU/L (10-42) 08/08/23 16:54 ALT 12 IU/L (10-60) 08/08/23 16:54 Alkaline Phosphatase 46 IU/L (42-121) 08/08/23 16:54 Troponin I High Sens 5.7 ng/L (2.3-19.7) 08/08/23 14:05 B-Natriuretic Peptide 37 pg/mL (5-100) 08/08/23 11:09 Total Protein 6.8 g/dL (6.4-8.9) 08/08/23 16:54 Albumin 3.0 g/dL (3.2-5.5) L 08/08/23 16:54 Globulin 3.8 g/dL (2.1-4.2) 08/08/23 16:54 Albumin/Globulin Ratio 0.9 (1.0-2.2) L 08/04/23 03:32 Lipase 13 U/L (11-82) 08/04/23 03:32 Urine Color YELLOW 08/08/23 18:09 Urine Clarity CLEAR (CLEAR) 08/08/23 18:09 Urine pH 6.0 PH (5.0-7.5) 08/08/23 18:09 Ur Specific Anselmo <=1.005 (1.002-1.030) 08/08/23 18:09 Urine Protein NEGATIVE mg/dL (NEGATIVE) 08/08/23 18:09 Urine Glucose (UA) NEGATIVE mg/dL (NEGATIVE) 08/08/23 18:09 Urine Ketones NEGATIVE mg/dL (NEGATIVE) 08/08/23 18:09 Urine Occult Blood SMALL (NEGATIVE) H 08/08/23 18:09 Urine Nitrite NEGATIVE (NEGATIVE) 08/08/23 18:09 Urine Bilirubin NEGATIVE (NEGATIVE) 08/08/23 18:09 Urine Urobilinogen 0.2 (NORMAL) E.U./dL (NORMAL) 08/08/23 18:09 Ur Leukocyte Esterase NEGATIVE (NEGATIVE) 08/08/23 18:09 Urine RBC 6-10 /HPF (0-5) H 08/08/23 18:09 Urine WBC 0-3 /HPF (0-3) 08/08/23 18:09 Ur Squamous Epith Cells NONE SEEN (<= Few) 08/08/23 18:09 Urine Bacteria None Seen /HPF (None Seen) 08/08/23 18:09 Ur Microscopic Review INDICATED 08/08/23 18:09 Urine Culture Comments NOT INDICATED 08/08/23 18:09 Nasal Adenovirus (PCR) NOT DETECTED 08/08/23 13:03 Nasal B. parapertussis DNA (PCR) NOT DETECTED 08/08/23 13:03 Nasal Coronavir 229E PCR NOT DETECTED 08/08/23 13:03 Nasal Coronavir HKU1 PCR NOT DETECTED 08/08/23 13:03 Nasal Coronavir NL63 PCR NOT DETECTED 08/08/23 13:03 Nasal Coronavir OC43 PCR NOT DETECTED 08/08/23 13:03 Nasal Enterovir/Rhinovir PCR NOT DETECTED 08/08/23 13:03 Nasal Influenza B PCR NOT DETECTED 08/08/23 13:03 Nasal Influenza A PCR NOT DETECTED 08/08/23 13:03 Nasal Parainfluen 1 PCR NOT DETECTED 08/08/23 13:03 Nasal Parainfluen 2 PCR NOT DETECTED 08/08/23 13:03 Nasal Parainfluen 3 PCR NOT DETECTED 08/08/23 13:03 Nasal Parainfluen 4 PCR NOT DETECTED 08/08/23 13:03 Nasal RSV (PCR) NOT DETECTED 08/08/23 13:03 Nasal B.pertussis DNA PCR NOT DETECTED 08/08/23 13:03 Nasal C.pneumoniae (PCR) NOT DETECTED 08/08/23 13:03 Nando Human Metapneumo PCR NOT DETECTED 08/08/23 13:03 Nasal M.pneumoniae (PCR) NOT DETECTED 08/08/23 13:03 Nasal SARS-CoV-2 (PCR) NOT DETECTED 08/08/23 13:03 Stl C. diff Tox B Gene NEGATIVE (NEGATIVE) 08/10/23 10:45
[2023-08-11] MEDS: ALPRAZolam 0.25 MG TABLET PO ONE (02:13)
[2023-08-11] MEDS: LOPERAMIDE 2 MG CAPSULE PO ONE (02:37)
[2023-08-11 07:04] LABS: ABG PCO2 52 mmHg (34-45); ABG PH 7.42 (7.35-7.45)
[2023-08-11 07:05] LABS: ABG BASE EXCESS 6.7 mmol/L (-2.0-3.0); ABG HCO3 32.5 mmol/L (22.0-26.0); ABG OXYGEN SATURATION 92 % (94-98); ABG PO2 63 mmHg (80-100); ABG TCO2 34.1 MMOL/L (21.0-29.0); ALLEN TEST POSITIVE
[2023-08-11 07:45] LABS: BASOPHILS # (AUTO) 0.1 10^3/uL (0.0-0.1); BASOPHILS % (AUTO) 0.7 %; EOSINOPHILS # (AUTO) 0.2 10^3/uL (0.0-0.7); EOSINOPHILS % (AUTO) 2.1 %; HCT - HEMATOCRIT 36.6 % (42.0-52.0); HGB - HEMOGLOBIN 12.3 g/dL (14.0-18.0); LYMPHOCYTES # (AUTO) 0.3 10^3/uL (1.5-3.5); LYMPHOCYTES % (AUTO) 3.3 %; MEAN CORPUSCULAR HEMOGLOBIN 31.2 pg (27.0-31.0); MEAN CORPUSCULAR HGB CONC 33.6 g/dL (32.0-36.0); MEAN CORPUSCULAR VOLUME 92.9 fL (80.0-94.0); MEAN PLATELET VOLUME 8.6 fL (7.4-11.4); MONOCYTES # (AUTO) 1.1 10^3/uL (0.0-1.0); MONOCYTES % (AUTO) 12.7 %; NEUTROPHILS # (AUTO) 7.2 10^3/uL (1.5-6.6); NEUTROPHILS % (AUTO) 80.9 %; PLT - PLATELET COUNT 318 10^3/uL (130-450); RED BLOOD COUNT 3.94 10^6/uL (4.70-6.10); WHITE BLOOD COUNT 8.9 x10^3/uL (4.8-10.8)
[2023-08-11 07:52] LABS: RHEUMATOID FACTOR NEGATIVE (Negative)
[2023-08-11 08:09] LABS: ALBUMIN/GLOBULIN RATIO 0.9 (1.0-2.2); BILIRUBIN,TOTAL 0.7 mg/dL (0.2-1.0); CALCIUM 8.6 mg/dL (8.5-10.3); CREATININE 0.8 mg/dL (0.6-1.3); POTASSIUM 3.5 mmol/L (3.5-4.5); TOTAL PROTEIN 6.5 g/dL (6.4-8.9)
[2023-08-11] MEDS: IPRATROPIUM/ALBUTEROL 3 ML NEB INH SCH (08:15)
--- NOTE | 2023-08-11 09:00 | XRAY Report ---
PROCEDURE: Chest 1V INDICATIONS: Worsening hypoxia TECHNIQUE: One view of the chest was acquired. COMPARISON: Chest radiograph 08/08/2023. FINDINGS: Surgical changes and devices: Wireless pacer, as before. Lungs and pleura: Compared to prior radiograph 08/08/2023, lung volumes have decreased. Increased siz e of bilateral pleural effusions and increased diffuse lung disease.. Mediastinum: Mediastinal contours appear normal. Heart size is normal. Bones and chest wall: No suspicious bony lesions. Overlying soft tissues appear unremarkable. IMPRESSION: Compared to prior radiograph 08/08/2023, lung volumes have decreased. Increased size of bilateral pleu ral effusions and increased diffuse lung disease. Reviewed by: Vivian Peters MD on 08/11/2023 8:59 AM PST Approved by: Vivian Peters MD on 08/11/2023 8:59 AM PST Station ID: [id number]
[2023-08-11] MEDS ORDERED: ZOLPIDEM 5 MG TABLET PO PRN (10:38)
[2023-08-11] MEDS: FAMOTIDINE 20 MG/2 ML VIAL IVP SCH (11:47)
[2023-08-11] MEDS: methylPREDNISolone SUCCINATE 40 MG/ML VIAL IVP SCH (13:32)
--- NOTE | 2023-08-11 14:37 | PROVIDER PROGRESS NOTE ---
Subjective - Subjective Pt reports feeling: Worse (Patient was awake all night, restless, has needed increased oxygen from O2 mask at 15 L/min plus CPAP and high flow n.c. now>> HHF at 35 L/min, when sat dropped to 80%) Objective - Vital Signs/Intake & Output Vital Signs: Vital Signs Pulse Resp BP Pulse Ox O2 Flow Rate 08/11/23 14:00 94 27 H 174/98 H 95 35 08/11/23 13:00 90 28 H 158/81 H 91 L 35 08/11/23 11:00 92 28 H 96 35 Intake & Output: Intake & Output 08/08/23 08/09/23 08/10/23 08/11/23 23:59 23:59 23:59 23:59 Intake Total 2290 2110 1690 1080 Output Total 5110 2828 2656 [id number] [facility] -[id number] -[id number] 00 -226 - Objective General Appearance: positive: Moderate distress (RR 24-30), Other (He appears very tired) Eyes Bilateral: positive: No lid inflammation ENT: positive: ENT inspection nml, No signs of dehydration Neck: positive: Nml inspection Respiratory: positive: Other (Diminished breath sounds, possibly "tight" but no actual wheezing, no rales or rhonchi) Cardiovascular: positive: Regular rate & rhythm Abdomen: positive: Non-tender, Nml bowel sounds Skin: positive: Warm, Dry Extremities: positive: Non-tender, No pedal edema Neurologic/Psychiatric: positive: Oriented x3, Other (generalized weakness, marked fatigue) - Lab Results Fish Bones: 08/11/23 07:11 08/11/23 07:11 Other Labs: Lab Results x24hrs 08/11/23 08/11/23 08/11/23 Range/Units 08:50 07:11 07:11 WBC (4.8-10.8) x10^3/uL RBC (4.70-6.10) 10^6/uL Hgb (14.0-18.0) g/dL Hct (42.0-52.0) % MCV (80.0-94.0) fL MCH (27.0-31.0) pg MCHC (32.0-36.0) g/dL RDW (12.0-15.0) % Plt Count (130-450) 10^3/uL MPV (7.4-11.4) fL Neut # (Auto) (1.5-6.6) 10^3/uL Lymph # (Auto) (1.5-3.5) 10^3/uL Martin # (Auto) (0.0-1.0) 10^3/uL Eos # (Auto) (0.0-0.7) 10^3/uL Baso # (Auto) (0.0-0.1) 10^3/uL Absolute Nucleated RBC x10^3/uL Nucleated RBC % /100WBC ESR 65 H (0-20) mm/Hr Bld Gas Analysis Time ABG pH (7.35-7.45) ABG pCO2 (34-45) mmHg ABG pO2 (80-100) mmHg ABG HCO3 (22.0-26.0) mmol/L ABG Total CO2 (21.0-29.0) MMOL/L ABG O2 Saturation (94-98) % ABG Base Excess (-2.0-3.0) mmol/L Fredy Test O2 Delivery Device O2 Liters/Min LPM FiO2 Sodium 136 (135-145) mmol/L Potassium 3.5 (3.5-4.5) mmol/L Chloride 98 L (101-111) mmol/L Carbon Dioxide 29 (21-32) mmol/L Anion Gap 9.0 (6-13) BUN 10 (6-20) mg/dL Creatinine 0.8 (0.6-1.3) mg/dL Estimated GFR (MDRD) 97 (>89) Glucose 102 (74-104) mg/dL POC Whole Bld Glucose (70 - 100) mg/dL Calcium 8.6 (8.5-10.3) mg/dL Total Bilirubin 0.7 (0.2-1.0) mg/dL AST 18 (10-42) IU/L ALT 14 (10-60) IU/L Alkaline Phosphatase 44 (42-121) IU/L Total Protein 6.5 (6.4-8.9) g/dL Albumin 3.0 L (3.2-5.5) g/dL Globulin 3.5 (2.1-4.2) g/dL Albumin/Globulin Ratio 0.9 L (1.0-2.2) Nasal Screen MRSA (PCR) NEGATIVE (NEGATIVE) Rheumatoid Factor (Negative) 02/24/24 02/24/24 02/24/24 Range/Units 07:11 07:11 06:49 WBC 8.9 (4.8-10.8) x10^3/uL RBC 3.94 L (4.70-6.10) 10^6/uL Hgb 12.3 L (14.0-18.0) g/dL Hct 36.6 L (42.0-52.0) % MCV 92.9 (80.0-94.0) fL MCH 31.2 H (27.0-31.0) pg MCHC 33.6 (32.0-36.0) g/dL RDW 12.0 (12.0-15.0) % Plt Count 318 (130-450) 10^3/uL MPV 8.6 (7.4-11.4) fL Neut # (Auto) 7.2 H (1.5-6.6) 10^3/uL Lymph # (Auto) 0.3 L (1.5-3.5) 10^3/uL Martin # (Auto) 1.1 H (0.0-1.0) 10^3/uL Eos # (Auto) 0.2 (0.0-0.7) 10^3/uL Baso # (Auto) 0.1 (0.0-0.1) 10^3/uL Absolute Nucleated RBC 0.00 x10^3/uL Nucleated RBC % 0.0 /100WBC ESR (0-20) mm/Hr Bld Gas Analysis Time ABG pH (7.35-7.45) ABG pCO2 (34-45) mmHg ABG pO2 (80-100) mmHg ABG HCO3 (22.0-26.0) mmol/L ABG Total CO2 (21.0-29.0) MMOL/L ABG O2 Saturation (94-98) % ABG Base Excess (-2.0-3.0) mmol/L Fredy Test O2 Delivery Device O2 Liters/Min LPM FiO2 Sodium (135-145) mmol/L Potassium (3.5-4.5) mmol/L Chloride (101-111) mmol/L Carbon Dioxide (21-32) mmol/L Anion Gap (6-13) BUN (6-20) mg/dL Creatinine (0.6-1.3) mg/dL Estimated GFR (MDRD) (>89) Glucose (74-104) mg/dL POC Whole Bld Glucose 102 H (70 - 100) mg/dL Calcium (8.5-10.3) mg/dL Total Bilirubin (0.2-1.0) mg/dL AST (10-42) IU/L ALT (10-60) IU/L Alkaline Phosphatase (42-121) IU/L Total Protein (6.4-8.9) g/dL Albumin (3.2-5.5) g/dL Globulin (2.1-4.2) g/dL Albumin/Globulin Ratio (1.0-2.2) Nasal Screen MRSA (PCR) (NEGATIVE) Rheumatoid Factor NEGATIVE (Negative) 08/11/23 Range/Units 06:45 WBC (4.8-10.8) x10^3/uL RBC (4.70-6.10) 10^6/uL Hgb (14.0-18.0) g/dL Hct (42.0-52.0) % MCV (80.0-94.0) fL MCH (27.0-31.0) pg MCHC (32.0-36.0) g/dL RDW (12.0-15.0) % Plt Count (130-450) 10^3/uL MPV (7.4-11.4) fL Neut # (Auto) (1.5-6.6) 10^3/uL Lymph # (Auto) (1.5-3.5) 10^3/uL Martin # (Auto) (0.0-1.0) 10^3/uL Eos # (Auto) (0.0-0.7) 10^3/uL Baso # (Auto) (0.0-0.1) 10^3/uL Absolute Nucleated RBC x10^3/uL Nucleated RBC % /100WBC ESR (0-20) mm/Hr Bld Gas Analysis Time 0645 ABG pH 7.42 (7.35-7.45) ABG pCO2 52 H (34-45) mmHg ABG pO2 63 L (80-100) mmHg ABG HCO3 32.5 H (22.0-26.0) mmol/L ABG Total CO2 34.1 H (21.0-29.0) MMOL/L ABG O2 Saturation 92 L (94-98) % ABG Base Excess 6.7 H (-2.0-3.0) mmol/L Fredy Test POSITIVE O2 Delivery Device HFNC O2 Liters/Min 45.00 LPM FiO2 100.00 Sodium (135-145) mmol/L Potassium (3.5-4.5) mmol/L Chloride (101-111) mmol/L Carbon Dioxide (21-32) mmol/L Anion Gap (6-13) BUN (6-20) mg/dL Creatinine (0.6-1.3) mg/dL Estimated GFR (MDRD) (>89) Glucose (74-104) mg/dL POC Whole Bld Glucose (70 - 100) mg/dL Calcium (8.5-10.3) mg/dL Total Bilirubin (0.2-1.0) mg/dL AST (10-42) IU/L ALT (10-60) IU/L Alkaline Phosphatase (42-121) IU/L Total Protein (6.4-8.9) g/dL Albumin (3.2-5.5) g/dL Globulin (2.1-4.2) g/dL Albumin/Globulin Ratio (1.0-2.2) Nasal Screen MRSA (PCR) (NEGATIVE) Rheumatoid Factor (Negative) Assessment/Plan - Problem List (1) ARDS (adult respiratory distress syndrome) Impression: Patient's O2 needs have slowly worsened during this hospitalization. His repeat CT chest showed no PE, bilateral pleural effusions bigger than the admission CT scan showed, and the same multiple ground glass pulmonary nodules. The was able to show me the report from [facility] CT scan done 07/13/2023 which showed "interstitial changes and pulmonary lung nodules then, consistent with atypical infection or interstitial lung disease". I repeated his respiratory PCR which came back entirely neg. His Echo was done and it showed normal chamber sizes, and normal LV and RV contractility. His BNP is normal. 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 Chest x-ray was repeated and today shows even fluffy or diffuse infiltrates. ABG done Plan: I will transfer this patient to ICU, given that ARDS is a potential finding by CXR today I will start him on Solu-Medrol 40 mg 3 times daily for treating possible ARDS Continue suppl O2 Continue with broadened spectrum empiric IV antibiotics, Vanco and Zosyn and await blood and spt cx Continue Mucinex for expectoration. Continue with daily IV Lasix to drain the pleural effusions and it may help ARDS Continue with IV morphine prn dyspnea and prn IV Ativan for his anxiety about "falling asleep and not waking up". Trial of scheduled bronchodilator nebulized today. I will work on getting him transferred to a facility with higher level of care that has a [employer] I updated the patient and his at bedside today (2) Lung nodule, multiple Impression: [facility] CT scan and our 2 CT scans done here have reported "groundglass nodules". He has multiple lungs. Etiology is not known. I am concerned they could be cancer Plan: Transferring him to a larger hospital that his Pulmonology is the plan now (3) Pleural effusion Assessment/Plan: He has increasing bilateral pleural effusions, they were small pleural effusions at admission Yesterday I ordered thoracentesis under ultrasound guidance>> He does have a layering effusion but it is too small to tap, per phone call from Dr. Aquino, Radiologist Plan: Continue daily IV Lasix (4) FUO Assessment/Plan: He has had a fever every day since admission The patient finished empiric treatment with IV ceftriaxone and IV Zithromax for pneumonia. His CTA chest confirmed unchanged consolidation, pleural effusions present and lung nodules are present. The CTA chest ruled out a PE Lactic acid level was checked and it was normal. WBC has been 8-8.6 throughout his hospital stay (all labs were reviewed). He had 2 covid tests, both neg Plan: Cont broadened antibx coverage using IV Zosyn and IV Vanco, for poss aspiration and for MRSA coverage and await sputum, urine culture and blood culture. I will work on having him transferred to a facility with higher level of care that has a [employer]. Perhaps he needs a biopsy of the lung nodules (5) CAP (community acquired pneumonia) Assessment/Plan: Patient had a non productive cough for weeks with progressive shortness of breath exacerbated by exertion. CT angio was negative PE but did show small right sided pleural effusion and trace left sided pleural effusion. Minimal scattered foci of poorly defined opacity seen throughout the lungs. This was consistent with his last CT of the chest done at [facility] at the end of Jun, that showed ground glass opacities. He has now had 2 CT chest's that rule out PE. He was started here on IV Rocephin + Azithromycin and has completed that course of tx I have started him on IV Vanco and IV Zosyn empirrically Plan: Cont broadened antibx Cont supplemental oxygen with target sat 92% or above Cont Mucinex scheduled Trial of scheduled bronchodilator nebulized today (6) History of bladder cancer The CT scan showed right-sided hydroureter so I ordered a urinalysis and ordered a urology consult Appreciate Dr. Robison's Urology input and he was able to deftermine that this is stable right-sided hydroureter and he has a chronic Sprague and it was not felt to be the source of his fevers (7) Chronic indwelling Sprague Plan: Continue standard Sprague care. Per Urologist Dr. Robison, monthly Sprague changes are needed (8) Hydronephrosis of R kidney The CT scan showed right-sided hydroureter so I ordered a urinalysis and ordered a urology consult We learned that the patient has history of bladder cancer and has had this right-sided hydronephrosis for years, so it is chronic and not a new problem (9) Anxiety Conclusion/Plan: Patient is anxious. He expressed fear of going to sleep and never waking up again due to his obstructive sleep apnea plus his worsening respiratory status. This has caused insomnia for the past few weeks. He and his both asked that I try something for getting him to sleep. Plan: PRN ativan has been given Also trying Ambien dosing (10) Obstructive sleep apnea Conclusion/Plan: Patient has seen a sleep specialist in the past but is having difficulty following up. He is compliant with his CPAP
[2023-08-11] MEDS ORDERED: MORPHINE 2 MG/ML CARPUJECT IVP PRN (15:36)
[2023-08-11 19:19] VITALS: BP 173/92; O2SAT 93
--- NOTE | 2023-08-11 19:29 | Discharge Plan ---
Discharge Plan Problem Reviewed?: Yes Disposition: 02 Transfer Acute Care Hosp Condition: Critical No Smoking: If you smoke, Please STOP! Call for help.
--- NOTE | 2023-08-11 19:32 | DISCHARGE SUMMARY ---
Discharge Summary Admit Date: 08/04/23 Discharge Date: 08/11/23 Discharging Provider: Dr Tamiko Awan Primary Care Provider: Dr Chandrika Braga Code Status: Attempt Resuscitation Condition at Discharge: Critical Discharge Disposition: 02 Transfer [facility] History of Present Illness: Patient is a 68 year old male with a history of urothelial cancer s/p BCG local chemotheray treatment and TURP who presents to the ER with anxiety and shortness of breath. He reports he has been feeling progressively weaker and short of breath for the past few weeks. He has dyspnea with exertion and reports significant fatigue when exercising, which is new for him. He also endorses a nonproductive cough. Initial labs in the ER were unremarkable other than an elevated D-dimer at 462.4. CT angio of the chest showed no PE. Small right sided pleural effusion and trace left sided pleural effusion with associated overlying atelectasis. Minimal scattered foci of poorly defined opacity could be seen throughout the lungs. This appears to be nonspecfic, yet atypical infection is suspected. Differential diagnosis includes mild pulmonary edema. EKG was unremarkable. He did have a CT of the chest at the end of Jun (1 mo ago) at [facility], that showed ground glass opacities, and then he had O2 sat around 92-93%. Currently, patient appears to be anxious and is worried about his sleep. He has diagnosed obstructive sleep apnea and does sleep with a CPAP with some relief. However, since he started feeling sick a few weeks ago, he has had a hard time s leeping due to "fear of going to sleep and never waking up". He admits to being incredibly stressed and is interested in anti-anxiety meds. Due to increased stress, he also reports a decreased appetite but denies any nausea, vomiting, abdominal pain, changes in bowel movements, or weight loss. - CONSULTS | PROCEDURES Consultations: Dr Robison, Urology - HOSPITAL COURSE Hospital Course: (1) Acute respiratory failure with hypoxia Patient's O2 needs slowly worsened during this hospitalization. He had repeat CT chest again showed no PE, bilateral pleural effusions bigger than the admission CT scan showed, and the same multiple ground glass pulmonary nodules. Bilateral pneumonia versus atelectasis was reported. He was on a course of antibiotics then a broadened course of antibiotics. His respiratory PCR came back entirely neg. His Echo was done and it showed normal chamber sizes, and normal LV and RV contractility. His BNP was normal. He did feel slight improvement with Lasix and needed prn iv Morphine. The had the CT chest report from [facility] done 07/13/2023 which showed "interstitial changes and pulmonary lung nodules then, consistent with atypical infection or interstitial lung disease". 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 His ESR came back 75, and other connective tissue tests were sent off and still pending. We had no definite diagnosis for the cause of his progressively worsening respiratory failure. On 08/11/2023, his ABG showed worsening and he was transferred into the ICU, needing heated high flow oxygen set at at 35 to 50 L/min. (2) CAP (community acquired pneumonia) He had a non productive cough for weeks with the progressive shortness of breath, worse during exertion. CXR and CT chest suggested bilateral infiltrates versus atelectasis. He was started here on IV Rocephin + Azithromycin and completed that course of treatment. He was then put on IV Vanco and IV Zosyn empirically, and received Mucinex and a trial of nebulized bronchodilator without much improvement. (3) ARDS (adult respiratory distress syndrome) On 08/11/2023 his chest x-ray was repeated and again showed worsened diffuse infiltrates. His ABG continued to worsen and he was transferred into the ICU, needing heated high flow oxygen set at at 35 to 50 L/min. We started him on Solu-Medrol 40 mg iv TID for treating possible ARDS. Daily iv Lasix was empirically continued. The broadened antibiotics were continued. I reached out to larger hospitals to have him accepted in transfer and he was accepted to go to [facility] ICU and was transferred there in serious condition by helicopter (4) Lung nodule, multiple [facility] CT scan and our 2 CT scans done here reported multiple "groundglass nodules". There is concern they could be cancer (5) Pleural effusion He has increasing bilateral pleural effusions, which were small pleural effusions at admission. A thoracentesis under ultrasound guidance was ordered, but there was not enough to tap, per the Radiologist. He was kept on daily IV Lasix (6) FUO He had a fever every day after admission. His WBC remained 8-8.6 throughout his stay and lactic acid was not elevated. ESR came back at 75 and workup for connective tissue diseases was sent out and results were all pending at the time of transfer. He had a complete course of empiric IV ceftriaxone and IV Zithromax and was on empirtic IV Vanco and IV Zosyn at the time of transfer. Sputum and all blood cultures were negative to date. (7) History of bladder cancer As per Hx. (8) Chronic indwelling Sprague Per Urologist Dr. Robison, monthly Sprague changes are needed (9) Hydronephrosis of R kidney The CT scan showed a right-sided hydroureter so I ordered a urinalysis which was normal and ordered a Uurology consult. Dr. Robison was able to determine that the right-sided hydroureter was stable and his chronic Sprague was stable and that a UTI was not the source of his fevers. (10) Anxiety Patient was anxious, expressed fear of going to sleep and never waking up again. The symptom almost sounded like PND. PRN IV Ativan and po Ambien was given without much benefit. (11) Obstructive sleep apnea Patient has seen a sleep specialist in the past but is having difficulty following up. He is compliant with his CPAP - ALLERGIES Allergies/Adverse Reactions: Allergies Allergy/AdvReac Type Severity Reaction Status Date / Time No Known Drug Allergies Allergy Verified 08/04/23 03:02 - MEDICATIONS Home Medications: Ambulatory Orders Medication Instructions Recorded Confirmed Tamsulosin [Flomax] 0.4 mg PO DAILY 08/04/23 08/04/23 B Complx/C/Folic/Zinc/Cup Basurto/E 1 each PO DAILY 08/06/23 08/06/23 [[id number]-Atrqrh Tab] Multivitamin [Theragran] 1 each PO DAILY 08/06/23 08/06/23 - PHYSICAL EXAM AT DISCHARGE General Appearance: positive: Mild distress (Wearing supplemental O2 plus his CPAP device, resp rate 25-30) Eyes Bilateral: positive: No lid inflammation ENT: positive: ENT inspection nml, Other (Appears disheveled) Neck: positive: Nml inspection Respiratory: positive: Other (Diminished breath sounds in all lung palma, no w heezes or rhonchi) Cardiovascular: positive: Regular rate & rhythm, No murmur Abdomen: positive: Non-tender, Nml bowel sounds, No distention Skin: positive: Warm, Dry Extremities: positive: Non-tender, No pedal edema Neurologic/Psychiatric: positive: Oriented x3, Motor nml, Other (Appears weak and very fatigued) - LABS Result Diagrams: 08/11/23 07:11 08/11/23 07:11 - DIAGNOSTIC IMAGING Diagnostic Imaging Results: Final report reviewed - TIME SPENT Time Spent in Discharge (Minutes): 65
--- NOTE | 2023-08-13 12:39 | ED Physician Documentation ---
ED Addendum - Addendum Addendum: 08/13/23 12:37 Patient stable on change of shift. Awaiting bed available at our facility. Outgoing pysician talked with hospitalist. No interventions needed while awaiting admission. When bed available, Dr. Hernandez wrote orders and pt to floor stable on NC oxygen supplement. Disposition: admitted in stable condition. Diagnoses: acute pneumonia hypoxemia metastatic cancer
[2023-08-15 16:08] LABS: ANTI-DNA (DS) AB QN <1 IU/mL (0-9); CENTROMERE B ANTIBODIES <0.2 AI (0.0-0.9); CHROMATIN ANTIBODIES <0.2 AI (0.0-0.9); JO-1 AB <0.2 AI (0.0-0.9); RIBOSOMAL P ANTIBODIES <0.2 AI (0.0-0.9); RNP ANTIBODIES 0.4 AI (0.0-0.9); SCLERODERMA-70 ANTIBODIES <0.2 AI (0.0-0.9); SJOGREN'S ANTI-SS-A <0.2 AI (0.0-0.9); SJOGREN'S ANTI-SS-B <0.2 AI (0.0-0.9); SMITH ANTIBODIES <0.2 AI (0.0-0.9); SMITH/RNP ANTIBODIES <0.2 AI (0.0-0.9)
== END 2023-08-11 20:10 | disposition short-term general hospital (02) | DRG 193 ==
LOC: ED 02:21 → MS3 11:14 → ICU 08-11 08:07
PROVIDERS: ADMIT Specialist; ATTEND Internal Medicine
PROC: 5A0935A Assistance with Respiratory Ventilation, Less than 24 Consecutive Hours, High Flow/Velocity Cannula (ICD-10-PCS; principal; 2023-08-10)
PROC: 5A09357 Assistance with Respiratory Ventilation, Less than 24 Consecutive Hours, Continuous Positive Airway Pressure (ICD-10-PCS; 2023-08-10)
DX: J18.9 Pneumonia, unspecified organism (principal); R09.02 Hypoxemia; J91.8 Pleural effusion in other conditions classified elsewhere; J80 Acute respiratory distress syndrome; J90 Pleural effusion, not elsewhere classified; N13.30 Unspecified hydronephrosis; J40 Bronchitis, not specified as acute or chronic; R91.8 Other nonspecific abnormal finding of lung field; G47.33 Obstructive sleep apnea (adult) (pediatric); N31.2 Flaccid neuropathic bladder, not elsewhere classified; Z53.29 Procedure and treatment not carried out because of patient's decision for other reasons; R50.9 Fever, unspecified; F41.9 Anxiety disorder, unspecified; R33.9 Retention of urine, unspecified; N32.0 Bladder-neck obstruction; G47.00 Insomnia, unspecified; R79.1 Abnormal coagulation profile; Z85.51 Personal history of malignant neoplasm of bladder; Z92.21 Personal history of antineoplastic chemotherapy; Z98.890 Other specified postprocedural states; Z96.0 Presence of urogenital implants
CPT/HCPCS: 36415; 36600; 71045; 71275; 74176; 76604; 80048; 80053; 80076; 81001; 82803; 83516; 83605; 83690; 83880; 84484; 85025; 85379; 85651; 86225; 86235; 86430; 87040; 87070; 87150; 87205; 87493; 87633; 93005; 93307; 94640; 96365; 96366; 96368; 96375; 99285; A9270; J1650; J2060; J3370; Q9967; 81003; 87086